=== PATIENT | male | born 1960 | race Caucasian/White ===

== ENCOUNTER 2017-06-23 11:22 | Day surgery (SDC) | payer OTHER ==
[2017-06-19 12:48] VITALS: BMI 28.2
[2017-06-23 11:45] VITALS: RESP 18; TEMP 98.4
[2017-06-23] MEDS: LACTATED RINGERS 1,000 ML IV SCH ×2 (11:52→11:57)
[2017-06-23] MEDS ORDERED: ONDANSETRON 4 MG/2 ML VIAL ONE (12:01)
[2017-06-23] MEDS ORDERED: PROPOFOL 10 MG/ML 20 ML VIAL IV ONE (12:01)
--- NOTE | 2017-06-23 12:21 | P.PCN ---
Date of Procedure: 06/23/17 Preoperative Diagnosis: Postoperative Diagnosis: Procedure(s) Performed: Procedure: Total colonoscopy. Preoperative diagnosis: Screening for neoplasia, patient has history of polyps. Postoperative diagnosis: Sigmoid diverticulosis with no evidence of acute diverticulitis, strictures, polyps or cancer. Preparation: HalfLytely prep. Sedation: Was provided by anesthesia. Brief clinical history: The patient is a 56-year-old male who is scheduled for this evaluation for screening for neoplasia because of history of polyps. He has no abdominal complaints, bleeding or anemia. His last colonoscopy was 2009. Procedure: With the patient on his left lateral decubitus position and after informed consent and adequate sedation, the perianal area was inspected and it did not show any fissures or fistulas. There were no masses felt on digital rectal examination. The Olympus CFQ 160L video colonoscope was then inserted in the rectum in the usual fashion and advanced to the cecum. There were multiple diverticular orifices seen scattered in the sigmoid with no evidence of acute diverticulitis or strictures. No polyps or tumors were seen. The mucosa appeared healthy. I retroflexed the endoscope in the rectum before the endoscope was withdrawn. The patient tolerated the procedure well. Plan: The patient was reassured. Discussed dietary measures. He will follow up with you as planned and I recommended repeat exam in 5 years. Implants: Indications for Procedure: Operative Findings: Description of Procedure:
[2017-06-23 12:35] VITALS: BP 103/67; PULSE 70
== END 2017-06-23 12:58 | disposition home or self-care (01) ==
LOC: ORWHC2ENDO 11:22
DX: Z12.11 Encounter for screening for malignant neoplasm of colon (principal); K57.30 Diverticulosis of large intestine without perforation or abscess without bleeding; Z86.010 Personal history of colon polyps; E78.5 Hyperlipidemia, unspecified; Z79.899 Other long term (current) drug therapy
CPT/HCPCS: J2405; J2704; G0105

== ENCOUNTER → 2017-11-12 | Outpatient (CLI) | payer OTHER ==
--- NOTE | 2017-11-12 08:11 | US ---
EXAMINATION TYPE: US duplex aorta DATE OF EXAM: 11/12/2017 COMPARISON: CT abdomen and pelvis December 30, 2013 CLINICAL HISTORY: Z13.6 Screening for Abdominal Aortic Aneurysm. EXAM MEASUREMENTS: Abdominal Aorta: Proximal: 2.7cm by 2.3 cm transversely Mid: 2.1cm by 2.4 cm transversely Distal: 1.9cm by 1.7 cm transversely Bifurcation: Right: 1.1 x 0.9 cm Left:1.2cm by 1.1 cm Mild atherosclerotic changes IMPRESSION: No ultrasound evidence for abdominal aortic aneurysm.
== END | disposition home or self-care (01) ==
LOC: RADUSWWP 07:30
PROVIDERS: ATTEND Internal Medicine
DX: Z13.6 Encounter for screening for cardiovascular disorders (principal)
CPT/HCPCS: 93979

== ENCOUNTER → 2018-08-26 | Outpatient (CLI) | payer OTHER ==
--- NOTE | 2018-08-27 17:57 | ECHOS ---
STRESS ECHOCARDIOGRAM DATE OF SERVICE: 08/26/2018 INDICATIONS: Chest pain MEDICATIONS: See list. BASELINE HEART RATE: 77 BASELINE BLOOD PRESSURE: 128/67 MAXIMUM HEART RATE: 153 MAXIMUM BLOOD PRESSURE: 202/73 85% MPHR: 137 100% MPHR: 161 METS: 11.1 MAXIMUM STAGE REACHED: 3 TOTAL EXERCISE TIME: 9:30 minutes CLINICAL INFORMATION: Chest pain. STAGE: 3. CLINICAL INFORMATION: The patient referred by Dr. Begum for a stress echo. RESULTS: Baseline heart rate 77. Baseline blood pressure 128/67 mmHg. Baseline 12-lead ECG shows sinus rhythm with normal cardiac intervals. Nonspecific ST-T abnormalities. Patient exercised on Maycol protocol for 9 minutes 30 seconds achieving a peak heart rate of 153 beats per minute. Mildly hypertensive response to exercise was noted. Peak blood pressure 202/73 mmHg. There was no ECG evidence for ischemia. No arrhythmias were noted. Baseline 2D echo images showed normal LV size and systolic function. No segmental wall motion abnormalities. At peak exercise, there was of overall LV contractility without developing any wall motion abnormalities. As recovery regional global LV systolic function remained normal. IMPRESSION: 1. No ECG or echocardiographic evidence for ischemia. 2. Good exercise capacity. 3. Mildly hypertensive response to . MMODL / IJN: [id number] /
== END | disposition home or self-care (01) ==
LOC: RADNMMAIN 09:08
PROVIDERS: ATTEND Internal Medicine
DX: R07.9 Chest pain, unspecified (principal)
CPT/HCPCS: 93351

== ENCOUNTER → 2020-08-30 | Outpatient (CLI) | payer OTHER | END | disposition home or self-care (01) | LOC: LABWHC1 11:56 | PROVIDERS: ATTEND Internal Medicine | DX: R51.9 Headache, unspecified (principal); R68.0 Hypothermia, not associated with low environmental temperature; Z20.828 Contact with and (suspected) exposure to other viral communicable diseases | CPT/HCPCS: U0003; C9803 ==

== ENCOUNTER → 2022-06-26 | Outpatient (CLI) | payer OTHER ==
[2022-06-26 11:09] LABS: Partial Thromboplastin Time 24.3 sec (22.0-30.0); Prothrombin Time 11.3 sec (9.0-12.0)
[2022-06-26 15:45] LABS: African American GFR (CKD) 70.6 (60.0-200.0); Albumin 4.2 g/dL (3.8-4.9); Albumin/Globulin Ratio 1.36 (1.60-3.17); Anion Gap 11.8 mmol/L (10.00-18.00); BUN/Creat Ratio 13.6 Ratio (12.00-20.00); C Reactive Protein 2.6 mg/dL (0.00-0.80); Calcium 9.1 mg/dL (8.7-10.3); Carbon Dioxide 25.1 mmol/L (20.0-27.5); Globulin 3.1 g/dL (1.6-3.3); Non-African American GFR(CKD) 60.9 (60.0-200.0); Potassium 3.8 mmol/L (3.5-5.5); Total Bilirubin 0.6 mg/dL (0.30-1.20); Total Protein 7.4 g/dL (6.2-8.2)
== END | disposition home or self-care (01) ==
LOC: LABWHC1 08:45
PROVIDERS: ATTEND Internal Medicine
DX: Z12.5 Encounter for screening for malignant neoplasm of prostate (principal); T14.8XXA Other injury of unspecified body region, initial encounter; R53.83 Other fatigue; R63.4 Abnormal weight loss; X58.XXXA Exposure to other specified factors, initial encounter
CPT/HCPCS: 36415; 80053; 84153; 84439; 84443; 85027; 85610; 85652; 85730; 86140

== ENCOUNTER 2022-07-01 16:25 | Inpatient (IN) | payer OTHER ==
[2022-07-01] MEDS ORDERED: SODIUM CHLORIDE 0.9% 1,000 ML IV ONE (17:09)
[2022-07-01 17:11] LABS: Albumin 4.2 g/dL (3.5-5.0); Calcium 8.8 mg/dL (8.4-10.2); Magnesium 1.9 mg/dL (1.6-2.3); Phosphorus 4.7 mg/dL (2.5-4.5); Potassium 3.5 mmol/L (3.5-5.1); Total Bilirubin 0.6 mg/dL (0.2-1.3); Total Protein 7.7 g/dL (6.3-8.2); Uric Acid 10.6 mg/dL (3.5-8.5)
--- NOTE | 2022-07-01 17:12 | XR ---
EXAMINATION TYPE: XR chest 2V DATE OF EXAM: 07/01/2022 5:04 PM COMPARISON: Chest radiographs from 02/10/2012 TECHNIQUE: XR chest 2V Frontal and lateral views of the chest. CLINICAL INDICATION:Male, 61 years old with history of sammy; FINDINGS: Lungs/Pleura: There is no evidence of pleural effusion, focal consolidation, or pneumothorax. Pulmonary vascularity: Unremarkable. Heart/mediastinum: Cardiomediastinal silhouette is unremarkable. Musculoskeletal: No acute osseous pathology. IMPRESSION: No acute cardiopulmonary disease/process.
[2022-07-01 17:21] LABS: INR 1.1 (<1.2); Partial Thromboplastin Time 24.8 sec (22.0-30.0); Prothrombin Time 11.4 sec (9.0-12.0)
[2022-07-01] MEDS ORDERED: NALOXONE 0.4 MG/ML 1 ML VIAL IV PRN (17:23)
[2022-07-01 17:29] LABS: Anisocytosis Slight; HCT 27.8 % (39.0-53.0); HGB 10.1 gm/dL (13.0-17.5); Hypochromasia Moderate; MCH 35.6 pg (25.0-35.0); MCHC 36.3 g/dL (31.0-37.0); MCV 98.1 fL (80.0-100.0); Macrocytosis Slight; Mean Platelet Volume 10.1; Poikilocytosis Slight; RBC 2.83 m/uL (4.30-5.90); RDW 18.5 % (11.5-15.5)
[2022-07-01] MEDS ORDERED: HYDROXYUREA 500 MG CAP PO STA (17:32)
--- NOTE | 2022-07-01 17:38 | ED ---
General Adult HPI - General Chief complaint: Recheck/Abnormal Lab/Rx Stated complaint: abnormal labs, per pcp report to er Time Seen by Provider: 07/01/22 16:35 Source: patient, RN notes reviewed, old records reviewed Mode of arrival: ambulatory - History of Present Illness Initial comments: 61-year-old male presenting for abnormal outpatient labs. Patient had a white blood cell count of 174,000 which was 50% blast cells. He was sent in for evaluation by his primary care physician. He does report increased fatigue, dyspnea, easy bruising and bloody noses over the past several months. He is also had unexplained weight loss and diffuse myalgias. He is otherwise quite h ealthy. - Related Data Home Medications Medication Instructions Recorded Confirmed Acetaminophen [Tylenol] 325 mg PO Q4H PRN 06/19/17 06/23/17 Fish Oil/Dha/Epa [Fish Oil 1,200 1 each PO DAILY 06/19/17 06/23/17 mg Fish Oil] Lovastatin [Mevacor] 20 mg PO DAILY 06/19/17 06/23/17 Allergies Allergy/AdvReac Type Severity Reaction Status Date / Time codeine Allergy Nausea Verified 07/01/22 16:39 Review of Systems ROS Statement: Those systems with pertinent positive or pertinent negative responses have been documented in the HPI. ROS Other: All systems not noted in ROS Statement are negative. Past Medical History Past Medical History: Hyperlipidemia History of Any Multi-Drug Resistant Organisms: None Reported Past Surgical History: Back Surgery, Orthopedic Surgery Additional Past Surgical History / Comment(s): Neck surgery, Bilateral Rotator cuff repairs, Plantar fascitis repair, wisdom teeth, colonoscopy Past Anesthesia/Blood Transfusion Reactions: Postoperative Nausea & Vomiting (PONV) Past Psychological History: No Psychological Hx Reported Smoking Status: Never smoker Past Alcohol Use History: Occasional Past Drug Use History: None Reported - Past Family History Father Family Medical History: Cancer Additional Family Medical History / Comment(s): skin CA General Exam General appearance: alert, in no apparent distress Head exam: Present: atraumatic, normocephalic Eye exam: Present: normal appearance, PERRL ENT exam: Present: other (Mucosal and tongue ecchymosis) Neck exam: Present: normal inspection Respiratory exam: Present: normal lung sounds bilaterally. Absent: respiratory distress, wheezes Cardiovascular Exam: Present: regular rate, normal rhythm GI/Abdominal exam: Present: soft. Absent: distended, tenderness, guarding Extremities exam: Present: normal capillary refill Neurological exam: Present: alert. Absent: motor sensory deficit Psychiatric exam: Present: normal affect, normal mood Skin exam: Present: warm, dry, petechiae, other (Multiple areas of ecchymosis and petechial rash) Course Vital Signs 07/01/22 16:34 Temperature 99.2 F Pulse Rate 107 H Respiratory 18 Rate Blood Pressure 142/82 O2 Sat by Pulse 96 Oximetry EKG Findings - EKG Comments: EKG Findings:: Sinus rhythm, low voltage rate of 89, IN interval 164, QRS duration 83, QTC [address] segment elevation. Medical Decision Making - Medical Decision Making 61-year-old male presenting with abnormal outpatient lab suggesting acute leukemia and blast crisis. The patient is well-appearing with stable vitals. All laboratory tests are repeated I did discuss case with Dr. Bolaños, covering for hematology oncology. She does recommend laboratory studies be repeated every 8 hours including a BMP, uric acid, alk phos and LDH, he also recommends allopurinol 300 mg daily, hydroxyurea 2 g, first dose given in the emergency department. And normal saline. I discussed case with Dr. Vale, who will admit with hematology on consult. - Lab Data Result diagrams: 07/01/22 16:51 Lab Results 07/01/22 07/01/22 Range/Units 16:51 16:51 PT 11.4 (9.0-12.0) sec INR 1.1 (<1.2) APTT 24.8 (22.0-30.0) sec Fibrinogen 418 (200-500) mg/dL Sodium 137 (137-145) mmol/L Potassium 3.5 (3.5-5.1) mmol/L Chloride 101 (98-107) mmol/L Carbon Dioxide 23 (22-30) mmol/L Anion Gap 13 mmol/L BUN 16 (9-20) mg/dL Creatinine 1.17 (0.66-1.25) mg/dL Est GFR (CKD-EPI)AfAm 76 (>60 ml/min/1.73 sqM) Est GFR (CKD-EPI)NonAf 66 (>60 ml/min/1.73 sqM) Glucose 145 H (74-99) mg/dL Uric Acid 10.6 H (3.5-8.5) mg/dL Calcium 8.8 (8.4-10.2) mg/dL Phosphorus 4.7 H (2.5-4.5) mg/dL Magnesium 1.9 (1.6-2.3) mg/dL Total Bilirubin 0.6 (0.2-1.3) mg/dL AST 90 H (17-59) U/L ALT 39 (4-49) U/L Alkaline Phosphatase 193 H (38-126) U/L Total Protein 7.7 (6.3-8.2) g/dL Albumin 4.2 (3.5-5.0) g/dL Critical Care Time Critical Care Time: Yes Total Critical Care Time: 35 Disposition Clinical Impression: Acute leukemia Disposition: ADMITTED IP TO THIS [facility] Condition: Serious Is patient prescribed a controlled substance at d/c from ED?: No Referrals: Stanley Murray MD [Primary Care Provider] - 1-2 days Time of Disposition: 17:37
[2022-07-01 17:45] LABS: Platelet Count 21 k/uL (150-450)
[2022-07-01] MEDS: allopurinoL 300 MG TAB PO SCH (18:01)
[2022-07-01] MEDS: SODIUM CHLORIDE 0.9% 1,000 ML IV SCH (18:01)
[2022-07-01 18:05] LABS: Appearance,Urine Clear (Clear); Bilirubin,Urine Negative (Negative); Blood,Urine Small (Negative); Calcium Oxalate Crystals,Urine Rare /hpf; Color,Urine Yellow; Glucose,Urine (UA) Negative (Negative); Ketones,Urine Negative (Negative); Leukocyte Esterase,Urine Small (Negative); Mucus,Urine Many /hpf; Nitrite,Urine Negative (Negative); PH, Urine 5.5 (5.0-8.0); Protein,Urine 1+ (Negative); RBC,Urine 42 /hpf (0-5); Specific Gravity,Urine 1.033 (1.001-1.035); WBC,Urine 6 /hpf (0-5)
[2022-07-01] MEDS ORDERED: LORATADINE 10 MG TAB PO PRN (18:15)
[2022-07-01] MEDS ORDERED: RASBURICASE 6 MG in SODIUM CHLORIDE 0.9% 46 ML IV ONE (18:15)
--- NOTE | 2022-07-01 18:15 | P.HPIM ---
History of Present Illness H&P Date: 07/01/22 Chief Complaint: fatigue 61-year-old male presenting for abnormal outpatient labs. Patient had a white blood cell count of 174,000 which was 50% blast cells. He was sent in for evaluation by his primary care physician. He does report increased fatigue, dyspnea, easy bruising and bloody noses over the past several months. He is also had unexplained weight loss, loss of appetite. He has exertional shortness of breath which is unusual for him as he is very active normally. He denied any chest pain. He did mention some left upper quadrant abdominal pain as well as nausea but no vomiting. No diarrhea or constipation. He only has history of hyperlipidemia. No other past medical history. Evaluation in the emergency department revealed WBC count 178 hemoglobin 10, hematocrit 27, AST 92, ALT 39, alk phos 193, d-dimer 1.74, glucose 145, uric acid 10.6. Case was discussed with hematology and patient was admitted to medicine for further evaluation and management. Review of Systems Complete review of system performed, pertinent positives per HPI, otherwise negative Past Medical History Past Medical History: Hyperlipidemia History of Any Multi-Drug Resistant Organisms: None Reported Past Surgical History: Back Surgery, Orthopedic Surgery Additional Past Surgical History / Comment(s): Neck surgery, Bilateral Rotator cuff repairs, Plantar fascitis repair, wisdom teeth, colonoscopy Past Anesthesia/Blood Transfusion Reactions: Postoperative Nausea & Vomiting (PONV) Past Psychological History: No Psychological Hx Reported Smoking Status: Never smoker Past Alcohol Use History: Occasional Past Drug Use History: None Reported - Past Family History Father Family Medical History: Cancer Additional Family Medical History / Comment(s): skin CA Medications and Allergies Home Medications Medication Instructions Recorded Confirmed Type Acetaminophen [Tylenol] 650 mg PO Q4H PRN 06/19/17 07/01/22 History Fish Oil/Dha/Epa [Fish Oil 1,200 1 cap PO DAILY 06/19/17 07/01/22 History mg Fish Oil] Lovastatin [Mevacor] 20 mg PO DAILY 06/19/17 07/01/22 History Loratadine [Claritin] 10 mg PO DAILY PRN 07/01/22 07/01/22 History Omeprazole [PriLOSEC] 20 mg PO DAILY 07/01/22 07/01/22 History tadalafiL 5 mg PO DAILY 07/01/22 07/01/22 History Allergies Allergy/AdvReac Type Severity Reaction Status Date / Time codeine Allergy Nausea Verified 07/01/22 17:54 Physical Exam Vitals: Vital Signs Temp Pulse Resp BP Pulse Ox 07/01/22 17:59 93 22 165/82 96 07/01/22 16:34 99.2 F 107 H 18 142/82 96 Intake and Output 07/01/22 07/01/22 07/01/22 06:59 14:59 22:59 Other: Weight 96.162 kg Constitutional: No acute distress, conversant, pleasant Eyes:Anicteric sclerae, moist conjunctiva, no lid-lag, PERRLA, ENMT: ecchymosis inside the oral cavity, no erythema, exudates Neck: Supple, FROM, no masses, or JVD, No carotid bruits, No thyromegaly Lungs: Clear to auscultation, Clear to percussion, Normal respiratory effort, no accessory muscle use Cardiovascular: Heart regular in rate and rhythm, No murmurs, gallops, or rubs, No peripheral edema Abdominal: Soft, Nontender, no guarding, rebound or rigidity, Normoactive bowel sounds, No hepatomegaly, + splenomegaly, No palpable mass Skin: +bruises all over the skin. Normal temperature, tone, texture, turgor, no induration, No subcutaneous nodules, No rash, lesions, No ulcers Extremities: No digital cyanosis, No clubbing, Pedal pulses intact and symmetrical, Radial pulses intact and symmetrical, No calf tenderness Psychiatric: Alert and oriented to person, place and time, appropriate affect, intact judgement Neuro: Muscles Strength 5/5 in all 4 extremities, Sensation to light touch grossly present throughout, Cranial nerves II-XII grossly intact, no focal sensory deficits Results CBC & Chem 7: 07/01/22 16:51 07/01/22 16:51 Labs: Abnormal Lab Results - Last 24 Hours (Table) 07/01/22 07/01/22 07/01/22 Range/Units 16:51 16:51 17:30 WBC 178.2 H* (3.8-10.6) k/uL RBC 2.83 L (4.30-5.90) m/uL Hgb 10.1 L (13.0-17.5) gm/dL Hct 27.8 L (39.0-53.0) % MCH 35.6 H (25.0-35.0) pg RDW 18.5 H (11.5-15.5) % D-Dimer 1.74 H (<0.60) mg/L FEU Glucose 145 H (74-99) mg/dL Uric Acid 10.6 H (3.5-8.5) mg/dL Phosphorus 4.7 H (2.5-4.5) mg/dL AST 90 H (17-59) U/L Alkaline Phosphatase 193 H (38-126) U/L Urine Protein (Negative) Urine Blood (Negative) Ur Leukocyte Esterase (Negative) Urine RBC (0-5) /hpf Urine WBC (0-5) /hpf Calcium Oxalate Crystal (None) /hpf Urine Mucus (None) /hpf 07/01/22 Range/Units 17:50 WBC (3.8-10.6) k/uL RBC (4.30-5.90) m/uL Hgb (13.0-17.5) gm/dL Hct (39.0-53.0) % MCH (25.0-35.0) pg RDW (11.5-15.5) % D-Dimer (<0.60) mg/L FEU Glucose (74-99) mg/dL Uric Acid (3.5-8.5) mg/dL Phosphorus (2.5-4.5) mg/dL AST (17-59) U/L Alkaline Phosphatase (38-126) U/L Urine Protein 1+ H (Negative) Urine Blood Small H (Negative) Ur Leukocyte Esterase Small H (Negative) Urine RBC 42 H (0-5) /hpf Urine WBC 6 H (0-5) /hpf Calcium Oxalate Crystal Rare H (None) /hpf Urine Mucus Many H (None) /hpf Assessment and Plan Plan: 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 Further management per hematology Normocytic anemia Workup per hematology Hyperglycemia Blood glucose was 145, check A1c Hyperlipidemia Continue statin Admit to inpatient, expected length of stay more than 2 mid nights
[2022-07-01 18:27] LABS: Band Neutrophils % 3 %; Metamyelocytes % 4 %; Myelocytes % 3 %; Neutrophils % (M) 26 %
[2022-07-01 18:28] LABS: Blast Cells # (M) 88.24 k/uL (0); Eosinophils # (M) 13.58 k/uL (0-0.7); Lymphocytes # (M) 5.09 k/uL (1.0-4.8); Metamyelocytes # (M) 6.79 k/uL (0); Myelocytes # (M) 5.09 k/uL (0); Nucleated Red Blood Cells 5 /100 WBC (0-0); Total Cells Counted 100; WBC 169.7 k/uL (3.8-10.6)
[2022-07-01 18:32] LABS: Poikilocytosis (M) Present; Polychromasia Present
[2022-07-01] MEDS: ACETAMINOPHEN TAB 325 MG TAB PO PRN (21:48)
[2022-07-02] MEDS: SODIUM CHLORIDE 0.9% 1,000 ML IV SCH ×3 (00:53→16:36)
[2022-07-02 02:39] LABS: Anisocytosis Slight; HCT 26.8 % (39.0-53.0); Hypochromasia Marked; MCH 31.9 pg (25.0-35.0); MCHC 31.8 g/dL (31.0-37.0); MCV 100.3 fL (80.0-100.0); Macrocytosis Moderate; Mean Platelet Volume 11.9; Poikilocytosis Slight; RBC 2.67 m/uL (4.30-5.90); RDW 19.1 % (11.5-15.5)
[2022-07-02 02:42] LABS: Calcium 8.6 mg/dL (8.4-10.2); Phosphorus 4.9 mg/dL (2.5-4.5); Potassium 3.5 mmol/L (3.5-5.1); Uric Acid 5.1 mg/dL (3.5-8.5)
[2022-07-02 03:07] LABS: WBC 154.7 k/uL (3.8-10.6)
[2022-07-02 03:10] LABS: HGB 8.5 gm/dL (13.0-17.5); Platelet Count 16 k/uL (150-450)
[2022-07-02] MEDS: allopurinoL 300 MG TAB PO SCH (08:07)
[2022-07-02] MEDS: PANTOPRAZOLE 40 MG TABLET PO SCH (08:08)
[2022-07-02 08:10] LABS: Band Neutrophils % 3 %; Blast Cells # (M) 69.62 k/uL (0); Eosinophils # (M) 9.28 k/uL (0-0.7); Lymphocytes # (M) 9.28 k/uL (1.0-4.8); Metamyelocytes # (M) 3.09 k/uL (0); Metamyelocytes % 2 %; Monocytes # (M) 21.66 k/uL (0-1.0); Myelocytes # (M) 3.09 k/uL (0); Myelocytes % 2 %; Neutrophils % (M) 24 %; Nucleated Red Blood Cells 0 /100 WBC (0-0); Promyelocytes # (M) 1.55 k/uL (0); Promyelocytes % 1 %; Total Cells Counted 200
[2022-07-02] MEDS: ACETAMINOPHEN TAB 325 MG TAB PO PRN ×3 (08:11→21:14)
[2022-07-02 08:15] LABS: Polychromasia Present
[2022-07-02] MEDS ORDERED: ATORVASTATIN 10 MG TAB PO SCH (09:00)
[2022-07-02] MEDS ORDERED: HYDROXYUREA 500 MG CAP PO STA (09:46)
[2022-07-02 11:00] LABS: Anisocytosis Slight; HCT 27.5 % (39.0-53.0); HGB 9.1 gm/dL (13.0-17.5); Hypochromasia Marked; MCH 33.1 pg (25.0-35.0); MCHC 32.9 g/dL (31.0-37.0); MCV 100.5 fL (80.0-100.0); Macrocytosis Moderate; Mean Platelet Volume 10.5; Poikilocytosis Slight; RBC 2.74 m/uL (4.30-5.90); RDW 19.1 % (11.5-15.5)
[2022-07-02 11:13] LABS: Platelet Count 20 k/uL (150-450)
[2022-07-02 11:28] LABS: Calcium 8.5 mg/dL (8.4-10.2); Phosphorus 4.4 mg/dL (2.5-4.5); Potassium 3.3 mmol/L (3.5-5.1); Uric Acid 2.4 mg/dL (3.5-8.5)
[2022-07-02] MEDS ORDERED: Potassium Replacement Protocol 1 EACH MISC MISCELLANE PRN (11:48)
[2022-07-02] MEDS: POTASSIUM CHLORIDE ER 20 MEQ TAB.ER PO SCH ×2 (11:57→12:58)
[2022-07-02 14:12] LABS: Band Neutrophils % 1 %; Metamyelocytes # (M) 3.16 k/uL (0); Metamyelocytes % 2 %; Monocytes # (M) 11.06 k/uL (0-1.0); Myelocytes # (M) 4.74 k/uL (0); Myelocytes % 3 %; Nucleated Red Blood Cells 0 /100 WBC (0-0)
[2022-07-02 14:15] LABS: Blast Cells # (M) 69.52 k/uL (0); Eosinophils # (M) 9.48 k/uL (0-0.7); Neutrophils % (M) 32 %; Polychromasia Present; Total Cells Counted 202
[2022-07-02 14:18] LABS: Reticulocyte % 5.8 % (0.5-2.0)
[2022-07-02] MEDS ORDERED: LIDOCAINE 1% INJ 10MG/ML (5 ML VIAL-PF) SQ ONE (14:34)
[2022-07-02] MEDS ORDERED: PROPOFOL 10 MG/ML 20 ML VIAL IV ONE (14:45)
[2022-07-02] MEDS ORDERED: MIDAZOLAM 2 MG/2 ML VIAL ONE (14:45)
[2022-07-02] MEDS ORDERED: ONDANSETRON 4 MG/2 ML VIAL ONE (14:45)
[2022-07-02] MEDS ORDERED: DEXAMETHASONE SOD PHOSPHATE 10 MG/ML 1 ML VIAL ONE (14:45)
[2022-07-02] MEDS ORDERED: PHENYLEPHRINE-0.9% NACL SYG 1,000 MCG/10 ML SYRINGE ONE (14:45)
[2022-07-02] MEDS ORDERED: fentaNYL (PF) 50 MCG/ML 2 ML AMP ONE (14:45)
[2022-07-02] MEDS ORDERED: IV FLUID CONTINUATION 1,000 ML IV ONE ×2 (14:49)
--- NOTE | 2022-07-02 15:09 | P.PN ---
Subjective Progress Note Date: 07/02/22 Principal diagnosis: weakness Feeling about the same, no changes. No overnight events. No pain, no sob. No fevers. Objective - Vital Signs Vital signs: Vital Signs Temp 97.8 F 07/02/22 07:43 Pulse 80 07/02/22 13:56 Resp 20 07/02/22 11:33 BP 135/75 07/02/22 11:33 Pulse Ox 96 07/02/22 11:33 FiO2 Intake & Output 07/01/22 07/02/22 07/02/22 18:59 06:59 18:59 Weight 96.162 kg 96.162 kg Other: Voiding Method Toilet # Voids 2 - Exam Constitutional: No acute distress, conversant, pleasant Eyes:Anicteric sclerae, moist conjunctiva, no lid-lag, PERRLA, ENMT: ecchymosis inside the oral cavity, no erythema, exudates Neck: Supple, FROM, no masses, or JVD, No carotid bruits, No thyromegaly Lungs: Clear to auscultation, Clear to percussion, Normal respiratory effort, no accessory muscle use Cardiovascular: Heart regular in rate and rhythm, No murmurs, gallops, or rubs, No peripheral edema Abdominal: Soft, Nontender, no guarding, rebound or rigidity, Normoactive bowel sounds, No hepatomegaly, + splenomegaly, No palpable mass Skin: +bruises all over the skin. Normal temperature, tone, texture, turgor, no induration, No subcutaneous nodules, No rash, lesions, No ulcers Extremities: No digital cyanosis, No clubbing, Pedal pulses intact and symmetrical, Radial pulses intact and symmetrical, No calf tenderness Psychiatric: Alert and oriented to person, place and time, appropriate affect, intact judgement Neuro: Muscles Strength 5/5 in all 4 extremities, Sensation to light touch grossly present throughout, Cranial nerves II-XII grossly intact, no focal sensory deficits - Labs CBC & Chem 7: 07/02/22 10:15 07/02/22 10:15 Labs: Abnormal Lab Results - Last 24 Hours (Table) 07/01/22 07/01/22 07/01/22 Range/Units 16:51 16:51 17:30 WBC 169.7 H* (3.8-10.6) k/uL RBC 2.83 L (4.30-5.90) m/uL Hgb 10.1 L (13.0-17.5) gm/dL Hct 27.8 L (39.0-53.0) % MCV (80.0-100.0) fL MCH 35.6 H (25.0-35.0) pg RDW 18.5 H (11.5-15.5) % Plt Count 21 L (150-450) k/uL Blast Cells % 52 H* % Neutrophils # (Manual) 49.20 H (1.3-7.7) k/uL Lymphocytes # (Manual) 5.09 H (1.0-4.8) k/uL Monocytes # (Manual) 1.70 H (0-1.0) k/uL Eosinophils # (Manual) 13.58 H (0-0.7) k/uL Metamyelocytes # (Man) 6.79 H (0) k/uL Myelocytes # (Manual) 5.09 H (0) k/uL Promyelocytes # (Man) (0) k/uL Blast Cells # (Man) 88.24 H (0) k/uL Nucleated RBCs 5 H (0-0) /100 WBC Retic Count (0.5-2.0) % D-Dimer 1.74 H (<0.60) mg/L FEU Potassium (3.5-5.1) mmol/L Glucose 145 H (74-99) mg/dL Uric Acid 10.6 H (3.5-8.5) mg/dL Phosphorus 4.7 H (2.5-4.5) mg/dL AST 90 H (17-59) U/L Alkaline Phosphatase 193 H (38-126) U/L Lactate Dehydrogenase (313-618) U/L Urine Protein (Negative) Urine Blood (Negative) Ur Leukocyte Esterase (Negative) Urine RBC (0-5) /hpf Urine WBC (0-5) /hpf Calcium Oxalate Crystal (None) /hpf Urine Mucus (None) /hpf 07/01/22 07/02/22 07/02/22 Range/Units 17:50 02:12 02:12 WBC 154.7 H* (3.8-10.6) k/uL RBC 2.67 L (4.30-5.90) m/uL Hgb 8.5 L D (13.0-17.5) gm/dL Hct 26.8 L (39.0-53.0) % MCV 100.3 H (80.0-100.0) fL MCH (25.0-35.0) pg RDW 19.1 H (11.5-15.5) % Plt Count 16 L* (150-450) k/uL Blast Cells % 45 H* % Neutrophils # (Manual) 41.70 H (1.3-7.7) k/uL Lymphocytes # (Manual) 9.28 H (1.0-4.8) k/uL Monocytes # (Manual) 21.66 H (0-1.0) k/uL Eosinophils # (Manual) 9.28 H (0-0.7) k/uL Metamyelocytes # (Man) 3.09 H (0) k/uL Myelocytes # (Manual) 3.09 H (0) k/uL Promyelocytes # (Man) 1.55 H (0) k/uL Blast Cells # (Man) 69.62 H (0) k/uL Nucleated RBCs (0-0) /100 WBC Retic Count (0.5-2.0) % D-Dimer (<0.60) mg/L FEU Potassium (3.5-5.1) mmol/L Glucose (74-99) mg/dL Uric Acid (3.5-8.5) mg/dL Phosphorus 4.9 H (2.5-4.5) mg/dL AST (17-59) U/L Alkaline Phosphatase (38-126) U/L Lactate Dehydrogenase 4417 H (313-618) U/L Urine Protein 1+ H (Negative) Urine Blood Small H (Negative) Ur Leukocyte Esterase Small H (Negative) Urine RBC 42 H (0-5) /hpf Urine WBC 6 H (0-5) /hpf Calcium Oxalate Crystal Rare H (None) /hpf Urine Mucus Many H (None) /hpf 07/02/22 07/02/22 Range/Units 10:15 10:15 WBC 158.0 H* (3.8-10.6) k/uL RBC 2.74 L (4.30-5.90) m/uL Hgb 9.1 L (13.0-17.5) gm/dL Hct 27.5 L (39.0-53.0) % MCV 100.5 H (80.0-100.0) fL MCH (25.0-35.0) pg RDW 19.1 H (11.5-15.5) % Plt Count 20 L (150-450) k/uL Blast Cells % 44 H* % Neutrophils # (Manual) 52.10 H (1.3-7.7) k/uL Lymphocytes # (Manual) 7.90 H (1.0-4.8) k/uL Monocytes # (Manual) 11.06 H (0-1.0) k/uL Eosinophils # (Manual) 9.48 H (0-0.7) k/uL Metamyelocytes # (Man) 3.16 H (0) k/uL Myelocytes # (Manual) 4.74 H (0) k/uL Promyelocytes # (Man) (0) k/uL Blast Cells # (Man) 69.52 H (0) k/uL Nucleated RBCs (0-0) /100 WBC Retic Count 5.8 H (0.5-2.0) % D-Dimer (<0.60) mg/L FEU Potassium 3.3 L (3.5-5.1) mmol/L Glucose (74-99) mg/dL Uric Acid 2.4 L (3.5-8.5) mg/dL Phosphorus (2.5-4.5) mg/dL AST (17-59) U/L Alkaline Phosphatase (38-126) U/L Lactate Dehydrogenase 4505 H (313-618) U/L Urine Protein (Negative) Urine Blood (Negative) Ur Leukocyte Esterase (Negative) Urine RBC (0-5) /hpf Urine WBC (0-5) /hpf Calcium Oxalate Crystal (None) /hpf Urine Mucus (None) /hpf Assessment and Plan 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 Will have a port and BM biopsy Further management per hematology Normocytic anemia Workup per hematology Hyperglycemia on admission A1c normal, no DM Hypokalemia Replace and follow Hyperlipidemia Continue statin
--- NOTE | 2022-07-02 15:14 | P.PCN ---
Date of Procedure: 07/02/22 Preoperative Diagnosis: Leukocytosis, abnormal peripheral smear, suspected acute leukemia Postoperative Diagnosis: Same Procedure(s) Performed: Bone marrow aspiration biopsy Anesthesia: MAC Surgeon: Ralf Beck Barrel Finisher #1: Stated None Estimated Blood Loss (ml): 2 Pathology: other Condition: stable Disposition: floor Indications for Procedure: Newly diagnosed marked leukocytosis, abnormal peripheral smear with majority of blasts. Suspected acute leukemia Operative Findings: Adequate samples Description of Procedure: The procedure was explained in detail to the patient on the floor. Informed consent was obtained on the floor. He was brought to the outpatient endoscopy suite and placed in the left lateral decubitus position. The area over both posterior iliac crest was cleaned and prepped with chlorhexidine a sterile draping. IV sedation wasn't initiated. Local anesthesia was administered with Xylocaine to the right posterior iliac crest. A Jamshidi needle was then inserted and bone marrow aspirate and biopsy obtained. On withdrawal of the needle, hemostasis was easily achieved. Blood loss was minimal and recovery from sedation was satisfactory. He appeared to have tolerated the procedure well without any obvious, immediate complications.
--- NOTE | 2022-07-02 15:28 | IR ---
EXAMINATION TYPE: IR cvc insert >=5 years DATE OF EXAM: 07/02/2022 COMPARISON: NONE CLINICAL HISTORY: Leukemia Needs long-term intravenous access for interval therapy. PROCEDURE: Hand hygiene obtained with soap and water and alcohol-based hand rub. After informed consent, the skin overlying the left basilic vein was localized with ultrasound and no jessie to be compressible and patent. An ultrasound image was obtained and submitted on the patient's c major. The overlying skin was prepped and draped and Lidocaine was used for local anesthesia. A skin fransisco was made with a scalpel. Access was gained to the vein under ultrasound guidance with a 21 gau ge needle and a 0.018 inch wire was advanced. Access site was dilated with Peel-Away sheath and cath eter tailored to the appropriate length and advanced such that the distal tip is at the cavoatrial ju nction. Spot image was obtained verifying placement. Catheter was fixed to the skin and a sterile d ressing was placed following hemostasis. Catheter was aspirated and flushed with saline. Patient wa s discharged in stable condition without complication. Maximal barrier technique is utilized. Ultras ound image is documented on the chart. Ultrasound used with sterile technique. Fluoro time and fluoroscopic images submitted to document procedure: 0.1 minutes fluoroscopy, 23 intr aoperative images document the procedure IMPRESSION: STATUS POST ULTRASOUND AND FLUOROSCOPIC GUIDED PICC LINE PLACEMENT, READY FOR USE. THIS PROCEDURE WAS PERFORMED BY THE UNDERSIGNED.
--- NOTE | 2022-07-02 16:11 | P.CONS ---
History of Present Illness - Reason for Consult Consult date: 07/02/22 leukocytosis, peripheral blasts Requesting physician: Rahul Grande - Chief Complaint abn labs - History of Present Illness Mr. Goyal is a pleasant 61-year-old male we've been asked to see in regards to significantly elevated WBC with bicytopenia and peripheral blasts. Patient states that for the last few months he has been experiencing some strange symptoms including unusual shortness of breath with exertion, persistent and progressive fatigue that he was not able to overcome, sores in his mouth, bruising on the extremities with no real trauma, gum bleeding, epistaxis and intermittent nausea. Patient was finally encouraged by his family to seek medical attention. He saw his PCP Dr. Houston who examined patient and harshal labs. Severe leukocytosis, anemia, thrombocytopenia seen. Pt was contacted and told to come directly to the hospital for evaluation. On admission his WBC was 169, hemoglobin 10.1, platelet count 21,000, blasts percentage 52%. ER physician did speak with Dr. Umair Bolaños. Hydrea 2000 mg 1 for cytoreduction was ordered. Tumor lysis labs were ordered, elevated uric acid and phosphorus noted, 1 dose of Elitek given, allopurinol started, IVF 125/hr. Kidney function WNL. Patient was seen in the ER today. Thankfully, patient is denying severe symptoms as long as he is at rest, he is able to tolerate oral intake and fluids, he is ambulating short distances without too much difficulty. His vital signs are stable. Patient states he is overall healthy man, the only medication he takes is cholesterol medicine. Review of Systems 10 point ROS is neg except as stated in HPI Past Medical History Past Medical History: Hyperlipidemia History of Any Multi-Drug Resistant Organisms: None Reported Past Surgical History: Back Surgery, Orthopedic Surgery Additional Past Surgical History / Comment(s): Neck surgery, Bilateral Rotator cuff repairs, Plantar fascitis repair, wisdom teeth, colonoscopy, cervical fusion, meniscus tear repair. Past Anesthesia/Blood Transfusion Reactions: Postoperative Nausea & Vomiting (PONV) Additional Past Anesthesia/Blood Transfusion Reaction / Comm: Usually takes nausea medication prior to going under anesthesia. Past Psychological History: No Psychological Hx Reported Smoking Status: Never smoker Past Alcohol Use History: Occasional Past Drug Use History: None Reported - Past Family History Father Family Medical History: Cancer Additional Family Medical History / Comment(s): Skin CA Mother Additional Family Medical History / Comment(s): Blood disorder, frequent blood transfusions Medications and Allergies Home Medications Medication Instructions Recorded Confirmed Type Acetaminophen [Tylenol] 650 mg PO Q4H PRN 06/19/17 07/01/22 History Fish Oil/Dha/Epa [Fish Oil 1,200 1 cap PO DAILY 06/19/17 07/01/22 History mg Fish Oil] Lovastatin [Mevacor] 20 mg PO DAILY 06/19/17 07/01/22 History Loratadine [Claritin] 10 mg PO DAILY PRN 07/01/22 07/01/22 History Omeprazole [PriLOSEC] 20 mg PO DAILY 07/01/22 07/01/22 History tadalafiL 5 mg PO DAILY 07/01/22 07/01/22 History Allergies Allergy/AdvReac Type Severity Reaction Status Date / Time codeine Allergy Nausea Verified 07/01/22 17:54 Physical Exam Vitals: Vital Signs Temp Pulse Pulse Resp BP BP Pulse Ox 07/02/22 11:33 80 20 135/75 96 07/02/22 07:43 97.8 F 77 20 135/73 95 07/02/22 05:44 98.6 F 80 20 129/72 97 07/01/22 21:47 86 20 134/80 98 07/01/22 17:59 93 22 165/82 96 07/01/22 16:34 99.2 F 107 H 18 142/82 96 Intake and Output 07/01/22 07/02/22 07/02/22 22:59 06:59 14:59 Other: Voiding Method Toilet # Voids 2 Weight 96.162 kg 96.162 kg - Constitutional General appearance: average body habitus, cooperative, no acute distress - EENT Lt buccal, lt lateral tongue, upper lip wet purpura Eyes: anicteric sclerae, EOMI ENT: hearing grossly normal, normal oropharynx - Neck Neck: no lymphadenopathy - Respiratory Respiratory: bilateral: rales (inspiratory) - Cardiovascular Rhythm: regular Heart sounds: normal: S1, S2 Abnormal Heart Sounds: no systolic murmur, no diastolic murmur, no rub, no S3 Gallop, no S4 Gallop, no click, no other leg Peripheral Edema: bilateral: None - Gastrointestinal General gastrointestinal: no absent bowel sounds, no decreased bowel sounds, no distended, hepatomegaly, no hyperactive bowel sounds, normal bowel sounds, no organomegaly, no rigid, no scaphoid, soft, splenomegaly, no tenderness, no umbilical hernia, no ventral hernia - Integumentary LLE bruising, scattered upper extremity bruises - Neurologic Neurologic: CNII-XII intact - Musculoskeletal Musculoskeletal: strength equal bilaterally - Psychiatric Psychiatric: A&O x's 3, appropriate affect, intact judgment & insight Results CBC & Chem 7: 07/02/22 10:15 07/02/22 10:15 Labs: Abnormal Lab Results - Last 24 Hours (Table) 07/01/22 07/01/22 07/01/22 Range/Units 16:51 16:51 17:30 WBC 169.7 H* (3.8-10.6) k/uL RBC 2.83 L (4.30-5.90) m/uL Hgb 10.1 L (13.0-17.5) gm/dL Hct 27.8 L (39.0-53.0) % MCV (80.0-100.0) fL MCH 35.6 H (25.0-35.0) pg RDW 18.5 H (11.5-15.5) % Plt Count 21 L (150-450) k/uL Blast Cells % 52 H* % Neutrophils # (Manual) 49.20 H (1.3-7.7) k/uL Lymphocytes # (Manual) 5.09 H (1.0-4.8) k/uL Monocytes # (Manual) 1.70 H (0-1.0) k/uL Eosinophils # (Manual) 13.58 H (0-0.7) k/uL Metamyelocytes # (Man) 6.79 H (0) k/uL Myelocytes # (Manual) 5.09 H (0) k/uL Promyelocytes # (Man) (0) k/uL Blast Cells # (Man) 88.24 H (0) k/uL Nucleated RBCs 5 H (0-0) /100 WBC D-Dimer 1.74 H (<0.60) mg/L FEU Potassium (3.5-5.1) mmol/L Glucose 145 H (74-99) mg/dL Uric Acid 10.6 H (3.5-8.5) mg/dL Phosphorus 4.7 H (2.5-4.5) mg/dL AST 90 H (17-59) U/L Alkaline Phosphatase 193 H (38-126) U/L Lactate Dehydrogenase (313-618) U/L Urine Protein (Negative) Urine Blood (Negative) Ur Leukocyte Esterase (Negative) Urine RBC (0-5) /hpf Urine WBC (0-5) /hpf Calcium Oxalate Crystal (None) /hpf Urine Mucus (None) /hpf 07/01/22 07/02/22 07/02/22 Range/Units 17:50 02:12 02:12 WBC 154.7 H* (3.8-10.6) k/uL RBC 2.67 L (4.30-5.90) m/uL Hgb 8.5 L D (13.0-17.5) gm/dL Hct 26.8 L (39.0-53.0) % MCV 100.3 H (80.0-100.0) fL MCH (25.0-35.0) pg RDW 19.1 H (11.5-15.5) % Plt Count 16 L* (150-450) k/uL Blast Cells % 45 H* % Neutrophils # (Manual) 41.70 H (1.3-7.7) k/uL Lymphocytes # (Manual) 9.28 H (1.0-4.8) k/uL Monocytes # (Manual) 21.66 H (0-1.0) k/uL Eosinophils # (Manual) 9.28 H (0-0.7) k/uL Metamyelocytes # (Man) 3.09 H (0) k/uL Myelocytes # (Manual) 3.09 H (0) k/uL Promyelocytes # (Man) 1.55 H (0) k/uL Blast Cells # (Man) 69.62 H (0) k/uL Nucleated RBCs (0-0) /100 WBC D-Dimer (<0.60) mg/L FEU Potassium (3.5-5.1) mmol/L Glucose (74-99) mg/dL Uric Acid (3.5-8.5) mg/dL Phosphorus 4.9 H (2.5-4.5) mg/dL AST (17-59) U/L Alkaline Phosphatase (38-126) U/L Lactate Dehydrogenase 4417 H (313-618) U/L Urine Protein 1+ H (Negative) Urine Blood Small H (Negative) Ur Leukocyte Esterase Small H (Negative) Urine RBC 42 H (0-5) /hpf Urine WBC 6 H (0-5) /hpf Calcium Oxalate Crystal Rare H (None) /hpf Urine Mucus Many H (None) /hpf 07/02/22 07/02/22 Range/Units 10:15 10:15 WBC 158.0 H* (3.8-10.6) k/uL RBC 2.74 L (4.30-5.90) m/uL Hgb 9.1 L (13.0-17.5) gm/dL Hct 27.5 L (39.0-53.0) % MCV 100.5 H (80.0-100.0) fL MCH (25.0-35.0) pg RDW 19.1 H (11.5-15.5) % Plt Count 20 L (150-450) k/uL Blast Cells % % Neutrophils # (Manual) (1.3-7.7) k/uL Lymphocytes # (Manual) (1.0-4.8) k/uL Monocytes # (Manual) (0-1.0) k/uL Eosinophils # (Manual) (0-0.7) k/uL Metamyelocytes # (Man) (0) k/uL Myelocytes # (Manual) (0) k/uL Promyelocytes # (Man) (0) k/uL Blast Cells # (Man) (0) k/uL Nucleated RBCs (0-0) /100 WBC D-Dimer (<0.60) mg/L FEU Potassium 3.3 L (3.5-5.1) mmol/L Glucose (74-99) mg/dL Uric Acid 2.4 L (3.5-8.5) mg/dL Phosphorus (2.5-4.5) mg/dL AST (17-59) U/L Alkaline Phosphatase (38-126) U/L Lactate Dehydrogenase 4505 H (313-618) U/L Urine Protein (Negative) Urine Blood (Negative) Ur Leukocyte Esterase (Negative) Urine RBC (0-5) /hpf Urine WBC (0-5) /hpf Calcium Oxalate Crystal (None) /hpf Urine Mucus (None) /hpf Chest x-ray: report reviewed Assessment and Plan (1) Spontaneous tumor lysis syndrome Current Visit: Yes Status: Acute Priority: High Code(s): E88.3 - TUMOR LYSIS SYNDROME SNOMED Code(s): 020216979 (2) Acute leukemia Current Visit: Yes Status: Acute Priority: High Code(s): C95.00 - ACUTE LEUKEMIA OF UNSP CELL TYPE NOT ACHIEVE REMISSION SNOMED Code(s): 27159084 Plan: peripheral smear was reviewed. No kita rods, coags and fibrinogen normal. Immature blast cells noted. Most likely acute leukemia. Disease process, prognosis, treatment options, all reviewed with patient. The patient is interested in finding out the diagnosis and pursuing treatment. Plan is for bone marrow biopsy and aspirate today. Procedure, risks versus benefits, infection risk reviewed with the patient. He is agreeable to proceed. Nothing by mouth, schedule procedure and consent. In anticipation of beginning induction chemotherapy for acute leukemia:ECHO ordered. PICC line insertion scheduled. Have requested that the patient be sent to 5 [address] Oncology unit. Supportive medications ordered. Another dose of Hydrea, 2000 mg ordered. Status post 1 dose of Elitek. Continue allopurinol 300 mg daily. CBC, metabolic panel and tumor lysis labs continue to be monitored daily. attests: I seen and examined patient, performed H&P, developed impression and plan of care. Discussed with dictator. Agree with dictation. Documented as a scribe. Time with Patient: Greater than 30
[2022-07-02] MEDS: SALT AND SODA MOUTHWASH 1,000 ML PO SCH ×2 (16:37→21:10)
[2022-07-02] MEDS: MAG HYDROX/AL HYDROX/SIMETH 30 ML, diphenhydrAMINE ELIXIR 75 MG, LIDOCAINE VISCOUS 2% 3... PO SCH ×6 (16:37→21:10)
[2022-07-02 18:40] LABS: Anisocytosis Slight; HCT 29.2 % (39.0-53.0); HGB 9.2 gm/dL (13.0-17.5); Hypochromasia Marked; MCH 31.6 pg (25.0-35.0); MCHC 31.5 g/dL (31.0-37.0); MCV 100.4 fL (80.0-100.0); Macrocytosis Moderate; Mean Platelet Volume 10.5; Poikilocytosis Slight; RBC 2.91 m/uL (4.30-5.90); RDW 18.7 % (11.5-15.5)
[2022-07-02 18:52] LABS: Calcium 9.1 mg/dL (8.4-10.2); Phosphorus 4.5 mg/dL (2.5-4.5); Potassium 4.7 mmol/L (3.5-5.1); Uric Acid 1.9 mg/dL (3.5-8.5)
[2022-07-02 19:23] LABS: Platelet Count 23 k/uL (150-450)
[2022-07-02 19:48] LABS: Basophilic Stippling Present; Poikilocytosis (M) Present; Polychromasia Present; Stomatocytes Present
[2022-07-02 19:52] LABS: Neutrophils % (M) 34 %
[2022-07-02 19:54] LABS: Nucleated Red Blood Cells 1 /100 WBC (0-0); Total Cells Counted 200
[2022-07-02 19:55] LABS: Blast Cells # (M) 96.03 k/uL (0); Eosinophils # (M) 8.73 k/uL (0-0.7); Lymphocytes # (M) 10.48 k/uL (1.0-4.8); Monocytes # (M) 1.75 k/uL (0-1.0); Neutrophils # (M) 59.36 k/uL (1.3-7.7); WBC 174.6 k/uL (3.8-10.6)
[2022-07-03] MEDS: SODIUM CHLORIDE 0.9% 1,000 ML IV SCH ×3 (00:02→16:59)
[2022-07-03] MEDS: SALT AND SODA MOUTHWASH 1,000 ML PO SCH ×5 (00:02→21:45)
--- NOTE | 2022-07-03 07:24 | CA ---
Transthoracic Echo Report Name: Estuardo Goyal Age: 61 Gender: M : 1960 Exam Date: 07/02/2022 13:15 Exam Location: [facility] Ht (in): 74 Wt (lb): 212 Ordering Physician: Hellen Garces Attending/Referring Phys: Credit Collections Rep Ana Garcia RDCS Procedure CPT: Indications: BASELINE, CARDIOTOXIC CHEMO Cardiac Hx: Technical Quality: Contrast 1: Total Dose (mL): Contrast 2: Total Dose (mL): MEASUREMENTS (Male / Female) Normal Values 2D ECHO LV Diastolic Diameter PLAX 4.8 cm 4.2 - 5.9 / 3.9 - 5.3 cm LV Systolic Diameter PLAX 3.0 cm IVS Diastolic Thickness 1.1 cm 0.6 - 1.0 / 0.6 - 0.9 cm LVPW Diastolic Thickness 1.0 cm 0.6 - 1.0 / 0.6 - 0.9 cm LV Relative Wall Thickness 0.4 RV Internal Dim ED PLAX 3.3 cm LA Systolic Diameter LX 3.3 cm 3.0 - 4.0 / 2.7 - 3.8 cm LA Volume 64.6 cm??? 18 - 58 / 22 - 52 cm??? M-MODE Aortic Root Diameter MM 3.8 cm MV E Point Septal Separation 0.4 cm AV Cusp Separation MM 2.6 cm DOPPLER AV Peak Velocity 163.5 cm/s AV Peak Gradient 10.7 mmHg MV Area PHT 3.2 cm??? Mitral E Point Velocity 93.3 cm/s Mitral A Point Velocity 87.3 cm/s Mitral E to A Ratio 1.1 MV Deceleration Time 240.2 ms MV E' Velocity 12.0 cm/s Mitral E to MV E' Ratio 7.8 TR Peak Velocity 276.8 cm/s TR Peak Gradient 30.6 mmHg Right Ventricular Systolic Press 35.4 mmHg FINDINGS Left Ventricle Left ventricular ejection fraction is estimated at 55-60 %. Left ventricular cavity size normal. Left ventricular wall thickness normal. Right Ventricle Mild right ventricular dilatation. Mild pulmonary hypertension. Right Atrium Normal right atrial size. Left Atrium Mildly increased left atrial volume. No evidence for an atrial septal defect. Mitral Valve Structurally normal mitral valve. No mitral stenosis, or prolapse.mild mitral regurgitation. Aortic Valve Trileaflet aortic valve. No aortic valve stenosis Tricuspid Valve Mild tricuspid regurgitation.structurally normal tricuspid valve. Pulmonic Valve Mild pulmonic regurgitation. Pericardium Normal pericardium. No pericardial effusion. Aorta Mild aortic dilatation at the level of the sinuses of valsalva 38 mm CONCLUSIONS 1. Normal size and systolic function 2. Mild mitral and tricuspid regurgitation 3. No pericardial effusion. Previewed by: Dr. Stanley Ryan MD (Electronically Signed) Final Date: 03 July 2022 07:23
[2022-07-03] MEDS: allopurinoL 300 MG TAB PO SCH (08:12)
[2022-07-03] MEDS: PANTOPRAZOLE 40 MG TABLET PO SCH (08:12)
[2022-07-03] MEDS: MAG HYDROX/AL HYDROX/SIMETH 30 ML, diphenhydrAMINE ELIXIR 75 MG, LIDOCAINE VISCOUS 2% 3... PO SCH ×9 (08:12→21:46)
[2022-07-03 09:38] LABS: African American GFR (CKD) 82.4 (60.0-200.0); Anion Gap 10.8 mmol/L (10.00-18.00); BUN/Creat Ratio 15.64 Ratio (12.00-20.00); Blood Urea Nitrogen 17.2 mg/dL (9.0-27.0); Calcium 9.2 mg/dL (8.7-10.3); Carbon Dioxide 24.2 mmol/L (20.0-27.5); Non-African American GFR(CKD) 71.1 (60.0-200.0); Phosphorus 4.9 mg/dL (2.4-5.1); Potassium 4.4 mmol/L (3.5-5.5); Uric Acid 1.4 mg/dL (3.7-8.7)
[2022-07-03] MEDS: ACETAMINOPHEN TAB 325 MG TAB PO PRN ×3 (11:26→21:50)
[2022-07-03 12:08] LABS: Anisocytosis (M) 2+; Basophils # (M) 0 X 10*3/uL (0.00-0.10); Blast Cells # (M) 95.53 k/uL (0); Eosinophils # (M) 1.99 X 10*3/uL (0.04-0.35); HCT 27.6 % (39.6-50.0); HGB 7.9 g/dL (13.0-17.0); Immature Platelet Fraction 13.5 % (1.1-6.1); Lymphocytes # (M) 5.97 X 10*3/uL (0.90-5.00); MCH 30.3 pg (27.0-32.0); MCHC 28.6 g/dL (32.0-37.0); MCV 105.7 fL (80.0-97.0); Macrocytosis (M) 2+; Mean Platelet Volume 11.7 fL (9.5-12.2); Monocytes # (M) 11.94 X 10*3/uL (0.20-1.00); NRBC Per 100 WBC 0.8 /100 WBCS (0.0-0.0); Neutrophils # (M) 79.61 X 10*3/uL (2.00-8.90); Neutrophils % (M) 40 %; Platelet Count 11 X 10*3/uL (140-440); Promyelocytes # (M) 3.98 k/uL (0); Promyelocytes % 2 % (0-0); RBC 2.61 X 10*6/uL (4.40-5.60); RDW 18.8 % (11.5-14.5); Smudge Cells PRESENT; WBC 199.02 X 10*3/uL (4.50-10.00)
--- NOTE | 2022-07-03 14:25 | P.PN ---
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 Objective - Vital Signs Vital signs: Vital Signs Temp 98.3 F 07/03/22 11:29 Pulse 89 07/03/22 11:29 Resp 16 07/03/22 11:29 BP 147/75 07/03/22 11:29 Pulse Ox 97 07/03/22 11:29 FiO2 Intake & Output 07/02/22 07/03/22 07/03/22 18:59 06:59 18:59 Intake Total 200 2280 480 Balance 200 2280 480 Weight 96.162 kg 104 kg Intake: IV 200 Intake, IV Titration 1560 Amount Sodium Chloride 0.9% 1, 1560 000 ml @ 125 mls/hr IV . Q8H [facility] Rx#:[id number] Oral 720 480 Other: Voiding Method Toilet Toilet Urinal Urinal # Voids 2 - Constitutional General appearance: Present: average body habitus, cooperative, no acute distress - EENT EENT Comment(s): wet purpura Eyes: Present: anicteric sclerae, EOMI ENT: Present: hearing grossly normal - Respiratory Respiratory: bilateral: CTA - Cardiovascular Rhythm: regular Heart sounds: normal: S1, S2 Abnormal Heart Sounds: Absent: systolic murmur, diastolic murmur, rub, S3 Gallop, S4 Gallop, click, other - Peripheral edema leg Peripheral Edema: bilateral: None - Gastrointestinal General gastrointestinal: Present: normal bowel sounds, soft - Integumentary Integumentary Comment(s): bruises on extremities - Neurologic Neurologic: Present: CNII-XII intact - Musculoskeletal Musculoskeletal: Present: strength equal bilaterally - Psychiatric Psychiatric: Present: A&O x's 3, appropriate affect, intact judgment & insight - Labs CBC & Chem 7: 07/03/22 06:12 07/03/22 06:12 Labs: Abnormal Lab Results - Last 24 Hours (Table) 07/02/22 07/02/22 07/02/22 Range/Units 10:15 18:26 18:26 WBC 174.6 H* (3.8-10.6) k/uL RBC 2.91 L (4.30-5.90) m/uL Hgb 9.2 L (13.0-17.5) gm/dL Hct 29.2 L (39.0-53.0) % MCV 100.4 H (80.0-100.0) fL MCHC (32.0-37.0) g/dL RDW 18.7 H (11.5-15.5) % Plt Count 23 L (150-450) k/uL Plt Count Comment Absolute Nucleated RBC (0.00-0.00) X 10*3/uL Promyelocytes % (0-0) % Blast Cells % 44 H* 55 H* % Neutrophils # (Manual) 52.10 H 59.36 H (1.3-7.7) k/uL Lymphocytes # (Manual) 7.90 H 10.48 H (1.0-4.8) k/uL Monocytes # (Manual) 11.06 H 1.75 H (0-1.0) k/uL Eosinophils # (Manual) 9.48 H 8.73 H (0-0.7) k/uL Metamyelocytes # (Man) 3.16 H (0) k/uL Myelocytes # (Manual) 4.74 H (0) k/uL Blast Cells # (Man) 69.52 H 96.03 H (0) k/uL Nucleated RBCs 1 H (0-0) /100 WBC NRBC/100 WBC Diff (0.0-0.0) /100 WBCS Immature Plt Fraction (1.1-6.1) % Retic Count 5.8 H (0.5-2.0) % Glucose 126 H (74-99) mg/dL Uric Acid 1.9 L (3.5-8.5) mg/dL Lactate Dehydrogenase 5695 H (313-618) U/L 07/03/22 07/03/22 Range/Units 06:12 06:12 WBC 199.02 H* (3.8-10.6) k/uL RBC 2.61 L (4.30-5.90) m/uL Hgb 7.9 L (13.0-17.5) gm/dL Hct 27.6 L (39.0-53.0) % MCV 105.7 H (80.0-100.0) fL MCHC 28.6 L (32.0-37.0) g/dL RDW 18.8 H (11.5-15.5) % Plt Count 11 L* (150-450) k/uL Plt Count Comment A Absolute Nucleated RBC 1.61 H (0.00-0.00) X 10*3/uL Promyelocytes % 2 H (0-0) % Blast Cells % 48 H* % Neutrophils # (Manual) 79.61 H (1.3-7.7) k/uL Lymphocytes # (Manual) 5.97 H (1.0-4.8) k/uL Monocytes # (Manual) 11.94 H (0-1.0) k/uL Eosinophils # (Manual) 1.99 H (0-0.7) k/uL Metamyelocytes # (Man) (0) k/uL Myelocytes # (Manual) (0) k/uL Blast Cells # (Man) (0) k/uL Nucleated RBCs (0-0) /100 WBC NRBC/100 WBC Diff 0.8 H (0.0-0.0) /100 WBCS Immature Plt Fraction 13.5 H (1.1-6.1) % Retic Count (0.5-2.0) % Glucose (74-99) mg/dL Uric Acid 1.4 L (3.5-8.5) mg/dL Lactate Dehydrogenase 2022 H (313-618) U/L - Imaging and Cardiology ECHO report reviewed Assessment and Plan (1) Spontaneous tumor lysis syndrome Current Visit: Yes Status: Acute Priority: High Code(s): E88.3 - TUMOR LYSIS SYNDROME SNOMED Code(s): 381475602 (2) Acute leukemia Current Visit: Yes Status: Acute Priority: High Code(s): C95.00 - ACUTE LEUKEMIA OF UNSP CELL TYPE NOT ACHIEVE REMISSION SNOMED Code(s): 06674880 Plan: Peripheral smear was reviewed. No kita rods, coags and fibrinogen normal. Immature blast cells noted. Dr. Bolaños discussed case with Pathology in [place]. Then reviewed case with Beauty Director Dr. Arauz in [place]. Most likely acute myeloid leukemia. As soon as a few more pieces of data are available will start induction chemo with 7+3. The disease process, prognosis, chemo, side effects, risks and anticipated complications all reviewed with patient. Pt is agreeable to proceed with treatment when enough info is available to confirm diagnosis. ECHO-LVEF 55-60%. PICC line inserted. Admitted to 5 [address] Oncology unit. Supportive medications ordered. Status post 1 dose of Elitek. Continue allopurinol 300 mg daily. Uric acid, LDH, and phos improved today CBC, metabolic panel and tumor lysis labs continue to be monitored daily. attests: I seen and examined patient, performed H&P, developed impression and plan of care. Discussed with dictator. Agree with dictation. Documented as a scribe. Time with Patient: Greater than 30
--- NOTE | 2022-07-03 14:55 | P.PN ---
Subjective Progress Note Date: 07/03/22 Principal diagnosis: weakness No overt bleeding. Still with easy bruising and purpura. No fevers, chills. No cp or sob. No n/v. Objective - Vital Signs Vital signs: Vital Signs Temp 98.3 F 07/03/22 11:29 Pulse 89 07/03/22 11:29 Resp 16 07/03/22 11:29 BP 147/75 07/03/22 11:29 Pulse Ox 97 07/03/22 11:29 FiO2 Intake & Output 07/02/22 07/03/22 07/03/22 18:59 06:59 18:59 Intake Total 200 2280 480 Balance 200 2280 480 Weight 96.162 kg 104 kg Intake: IV 200 Intake, IV Titration 1560 Amount Sodium Chloride 0.9% 1, 1560 000 ml @ 125 mls/hr IV . [facility]H [facility] Rx#:[id number] Oral 720 480 Other: Voiding Method Toilet Toilet Urinal Urinal # Voids 2 - Exam Constitutional: No acute distress, conversant, pleasant Eyes:Anicteric sclerae, moist conjunctiva, no lid-lag, PERRLA, ENMT: ecchymosis inside the oral cavity, no erythema, exudates Neck: Supple, FROM, no masses, or JVD, No carotid bruits, No thyromegaly Lungs: Clear to auscultation, Clear to percussion, Normal respiratory effort, no accessory muscle use Cardiovascular: Heart regular in rate and rhythm, No murmurs, gallops, or rubs, No peripheral edema Abdominal: Soft, Nontender, no guarding, rebound or rigidity, Normoactive bowel sounds, No hepatomegaly, + splenomegaly, No palpable mass Skin: +bruises all over the skin. Normal temperature, tone, texture, turgor, no induration, No subcutaneous nodules, No rash, lesions, No ulcers Extremities: No digital cyanosis, No clubbing, Pedal pulses intact and s ymmetrical, Radial pulses intact and symmetrical, No calf tenderness Psychiatric: Alert and oriented to person, place and time, appropriate affect, intact judgement Neuro: Muscles Strength 5/5 in all 4 extremities, Sensation to light touch grossly present throughout, Cranial nerves II-XII grossly intact, no focal sensory deficits - Labs CBC & Chem 7: 07/03/22 06:12 07/03/22 06:12 Labs: Abnormal Lab Results - Last 24 Hours (Table) 07/02/22 07/02/22 07/03/22 Range/Units 18:26 18:26 06:12 WBC 174.6 H* (3.8-10.6) k/uL RBC 2.91 L (4.30-5.90) m/uL Hgb 9.2 L (13.0-17.5) gm/dL Hct 29.2 L (39.0-53.0) % MCV 100.4 H (80.0-100.0) fL MCHC (32.0-37.0) g/dL RDW 18.7 H (11.5-15.5) % Plt Count 23 L (150-450) k/uL Plt Count Comment Absolute Nucleated RBC (0.00-0.00) X 10*3/uL Promyelocytes % (0-0) % Blast Cells % 55 H* % Neutrophils # (Manual) 59.36 H (1.3-7.7) k/uL Lymphocytes # (Manual) 10.48 H (1.0-4.8) k/uL Monocytes # (Manual) 1.75 H (0-1.0) k/uL Eosinophils # (Manual) 8.73 H (0-0.7) k/uL Blast Cells # (Man) 96.03 H (0) k/uL Nucleated RBCs 1 H (0-0) /100 WBC NRBC/100 WBC Diff (0.0-0.0) /100 WBCS Immature Plt Fraction (1.1-6.1) % Glucose 126 H (74-99) mg/dL Uric Acid 1.9 L 1.4 L (3.5-8.5) mg/dL Lactate Dehydrogenase 5695 H 2022 H (313-618) U/L 07/03/22 Range/Units 06:12 WBC 199.02 H* (3.8-10.6) k/uL RBC 2.61 L (4.30-5.90) m/uL Hgb 7.9 L (13.0-17.5) gm/dL Hct 27.6 L (39.0-53.0) % MCV 105.7 H (80.0-100.0) fL MCHC 28.6 L (32.0-37.0) g/dL RDW 18.8 H (11.5-15.5) % Plt Count 11 L* (150-450) k/uL Plt Count Comment A Absolute Nucleated RBC 1.61 H (0.00-0.00) X 10*3/uL Promyelocytes % 2 H (0-0) % Blast Cells % 48 H* % Neutrophils # (Manual) 79.61 H (1.3-7.7) k/uL Lymphocytes # (Manual) 5.97 H (1.0-4.8) k/uL Monocytes # (Manual) 11.94 H (0-1.0) k/uL Eosinophils # (Manual) 1.99 H (0-0.7) k/uL Blast Cells # (Man) (0) k/uL Nucleated RBCs (0-0) /100 WBC NRBC/100 WBC Diff 0.8 H (0.0-0.0) /100 WBCS Immature Plt Fraction 13.5 H (1.1-6.1) % Glucose (74-99) mg/dL Uric Acid (3.5-8.5) mg/dL Lactate Dehydrogenase (313-618) U/L Assessment and Plan Plan: Acute myeloid leukemia Management per hematology Started on hydroxyuria and allopurinol. Echo ok Normocytic anemia Workup per hematology Thrombocytopenia Per heme Hyperglycemia on admission A1c normal, no DM Hypokalemia Replaced Hyperlipidemia Continue statin
[2022-07-03 15:15] VITALS: BMI 29.4
[2022-07-03] MEDS ORDERED: HYDROXYUREA 500 MG CAP PO SCH (18:30)
[2022-07-04] MEDS: SALT AND SODA MOUTHWASH 1,000 ML PO SCH ×5 (00:26→21:41)
[2022-07-04] MEDS: SODIUM CHLORIDE 0.9% 1,000 ML IV SCH ×3 (00:27→15:18)
[2022-07-04] MEDS ORDERED: bisacodyL 5 MG TABLET.DR PO STA (01:35)
[2022-07-04] MEDS: allopurinoL 300 MG TAB PO SCH (07:55)
[2022-07-04] MEDS: MAG HYDROX/AL HYDROX/SIMETH 30 ML, diphenhydrAMINE ELIXIR 75 MG, LIDOCAINE VISCOUS 2% 3... PO SCH ×9 (07:55→21:40)
[2022-07-04] MEDS: PANTOPRAZOLE 40 MG TABLET PO SCH (07:55)
[2022-07-04] MEDS: ACETAMINOPHEN TAB 325 MG TAB PO PRN ×4 (11:15→23:17)
[2022-07-04] MEDS: ONDANSETRON 4 MG/2 ML VIAL IVP PRN (11:16)
[2022-07-04 11:19] LABS: African American GFR (CKD) 82.4 (60.0-200.0); Anion Gap 11.5 mmol/L (10.00-18.00); BUN/Creat Ratio 14.18 Ratio (12.00-20.00); Blood Urea Nitrogen 15.6 mg/dL (9.0-27.0); Calcium 8.6 mg/dL (8.7-10.3); Carbon Dioxide 22.5 mmol/L (20.0-27.5); Non-African American GFR(CKD) 71.1 (60.0-200.0); Potassium 3.5 mmol/L (3.5-5.5)
[2022-07-04 12:24] LABS: HCT 25.8 % (39.6-50.0); HGB 7.4 g/dL (13.0-17.0); MCHC 28.7 g/dL (32.0-37.0); MCV 107.9 fL (80.0-97.0); Mean Platelet Volume 10.6 fL (9.5-12.2); NRBC Per 100 WBC 1.5 /100 WBCS (0.0-0.0); RBC 2.39 X 10*6/uL (4.40-5.60); RDW 18.9 % (11.5-14.5)
[2022-07-04 12:49] LABS: Band Neutrophils % 4 %; Basophils # (M) 0 X 10*3/uL (0.00-0.10); Blast Cells # (M) 88.33 k/uL (0); Eosinophils # (M) 7.85 X 10*3/uL (0.04-0.35); Immature Platelet Fraction 13.4 % (1.1-6.1); Lymphocytes # (M) 7.85 X 10*3/uL (0.90-5.00); Metamyelocytes % 2 % (0-0); Monocytes # (M) 11.78 X 10*3/uL (0.20-1.00); Neutrophils % (M) 33 %; Promyelocytes # (M) 3.93 k/uL (0); Promyelocytes % 2 % (0-0)
--- NOTE | 2022-07-04 14:18 | P.PN ---
Subjective Progress Note Date: 07/04/22 Principal diagnosis: weakness Patient spiked a fever of 101.2 today. He received Tylenol and he is currently afebrile. No complaints of chest pain, shortness of breath, cough, no nausea or vomiting. Objective - Vital Signs Vital signs: Vital Signs Temp 98.8 F 07/04/22 11:10 Pulse 85 07/04/22 11:10 Resp 18 07/04/22 11:10 BP 155/76 07/04/22 11:10 Pulse Ox 95 07/04/22 11:10 FiO2 Intake & Output 07/03/22 07/04/22 07/04/22 18:59 06:59 18:59 Intake Total 1979 500 Balance 1979 500 Weight 104 kg 108 kg Intake: Intake, IV Titration 1500 Amount Sodium Chloride 0.9% 1, 1500 000 ml @ 125 mls/hr IV . Q8H [facility] Rx#:[id number] Oral 480 500 Other: Voiding Method Toilet Urinal # Voids 2 - Exam Constitutional: No acute distress, conversant, pleasant Eyes:Anicteric sclerae, moist conjunctiva, no lid-lag, PERRLA, ENMT: ecchymosis inside the oral cavity, no erythema, exudates Neck: Supple, FROM, no masses, or JVD, No carotid bruits, No thyromegaly Lungs: Clear to auscultation, Clear to percussion, Normal respiratory effort, no accessory muscle use Cardiovascular: Heart regular in rate and rhythm, No murmurs, gallops, or rubs, No peripheral edema Abdominal: Soft, Nontender, no guarding, rebound or rigidity, Normoactive bowel sounds, No hepatomegaly, + splenomegaly, No palpable mass Skin: +bruises all over the skin. Normal temperature, tone, texture, turgor, no induration, No subcutaneous nodules, No rash, lesions, No ulcers Extremities: No digital cyanosis, No clubbing, Pedal pulses intact and symmetrical, Radial pulses intact and symmetrical, No calf tenderness Psychiatric: Alert and oriented to person, place and time, appropriate affect, intact judgement Neuro: Muscles Strength 5/5 in all 4 extremities, Sensation to light touch grossly present throughout, Cranial nerves II-XII grossly intact, no focal sensory deficits - Labs CBC & Chem 7: 07/04/22 06:22 08/25/22 06:22 Labs: Abnormal Lab Results - Last 24 Hours (Table) 07/03/22 07/04/22 07/04/22 Range/Units 06:12 06:22 06:22 WBC 196.28 H* (4.50-10.00) X 10*3/uL RBC 2.39 L (4.40-5.60) X 10*6/uL Hgb 7.4 L (13.0-17.0) g/dL Hct 25.8 L (39.6-50.0) % MCV 107.9 H (80.0-97.0) fL MCHC 28.7 L (32.0-37.0) g/dL RDW 18.9 H (11.5-14.5) % Plt Count 10 L* (140-440) X 10*3/uL Plt Count Comment A Absolute Nucleated RBC 2.91 H (0.00-0.00) X 10*3/uL Metamyelocytes % 2 H (0-0) % Promyelocytes % 2 H (0-0) % Blast Cells % 45 H* (0-0) % Neutrophils # (Manual) 72.62 H (2.00-8.90) X 10*3/uL Lymphocytes # (Manual) 7.85 H (0.90-5.00) X 10*3/uL Monocytes # (Manual) 11.78 H (0.20-1.00) X 10*3/uL Eosinophils # (Manual) 7.85 H (0.04-0.35) X 10*3/uL Promyelocytes # (Man) 3.98 H (0) k/uL Blast Cells # (Man) 95.53 H (0) k/uL NRBC/100 WBC Diff 1.5 H (0.0-0.0) /100 WBCS Immature Plt Fraction 13.4 H (1.1-6.1) % Calcium 8.6 L (8.7-10.3) mg/dL Assessment and Plan Plan: Acute myeloid leukemia Management per hematology Started on hydroxyuria and allopurinol. Discussed with hematology, planning to start chemo today Echo ok Normocytic anemia Workup per hematology Thrombocytopenia Per heme Fever of unknown origin Blood cultures sent Check UA and CXR Hyperglycemia on admission A1c normal, no DM Hypokalemia Replaced Hyperlipidemia Continue statin
[2022-07-04] MEDS: SENNOSIDES-DOCUSATE SODIUM 1 EACH TAB PO SCH (15:13)
--- NOTE | 2022-07-04 15:43 | XR ---
EXAMINATION TYPE: XR chest 2V DATE OF EXAM: 07/04/2022 3:32 PM COMPARISON: Chest radiographs from 07/01/2022, IR CVC insertion 07/02/2022. TECHNIQUE: XR chest 2V Frontal and lateral views of the chest. CLINICAL INDICATION:Male, 61 years old with history of fever; FINDINGS: Lungs/Pleura: There is no evidence of pleural effusion, focal consolidation, or pneumothorax. Pulmonary vascularity: Unremarkable. Heart/mediastinum: Cardiomediastinal silhouette is unremarkable. Musculoskeletal: No acute osseous pathology. Partial visualization of cervical fusion hardware. Interval retraction of left PICC line which is coiled over the left apex with tip likely within the l eft brachiocephalic vein. IMPRESSION: Interval retraction of left PICC line with coiled appearance over the left apex and distal tip likely within the left brachiocephalic vein. Repositioning is recommended.
[2022-07-04 15:45] LABS: Appearance,Urine Clear (Clear); Bilirubin,Urine Negative (Negative); Blood,Urine Negative (Negative); Color,Urine Light Yellow; Glucose,Urine (UA) Negative (Negative); Ketones,Urine Negative (Negative); Leukocyte Esterase,Urine Negative (Negative); Nitrite,Urine Negative (Negative); PH, Urine 6.5 (5.0-8.0); Protein,Urine Negative (Negative); Specific Gravity,Urine 1.005 (1.001-1.035); Urobilinogen,Urine <2.0 mg/dL (<2.0)
[2022-07-04] MEDS ORDERED: HYDROXYUREA 500 MG CAP PO STA (18:11)
--- NOTE | 2022-07-04 18:15 | P.PN ---
Subjective Progress Note Date: 07/04/22 Principal diagnosis: Peripheral blasts, highly suspect AML In f/u pt denies overt bleeding, he has hematoma after a blood draw. Bruising persists but is not progressive at this time. Oral purpura, buccal areas healing, new lesion on the soft palet. SOB when active, no chast pain, fevers, he did have nausea which he associates with constipation, he feels he may have a BM today. Objective - Vital Signs Vital signs: Vital Signs Temp 98.8 F 07/04/22 11:10 Pulse 85 07/04/22 11:10 Resp 18 07/04/22 11:10 BP 155/76 07/04/22 11:10 Pulse Ox 95 07/04/22 11:10 FiO2 Intake & Output 07/03/22 07/04/22 07/04/22 18:59 06:59 18:59 Intake Total 9383 211 8392 Balance 9384 702 5130 Weight 104 kg 108 kg Intake: Intake, IV Titration 1500 1500 Amount Sodium Chloride 0.9% 1, 1500 1500 000 ml @ 125 mls/hr IV . Q8H [facility] Rx#:[id number] Oral 480 500 Other: Voiding Method Toilet Urinal # Voids 2 4 - Constitutional General appearance: Present: average body habitus, cooperative, no acute distress - EENT EENT Comment(s): wet purpura, persistent, not progressive-some healing, 1 new Eyes: Present: anicteric sclerae, EOMI ENT: Present: hearing grossly normal - Respiratory Respiratory: bilateral: CTA - Cardiovascular Rhythm: regular Heart sounds: normal: S1, S2 Abnormal Heart Sounds: Absent: systolic murmur, diastolic murmur, rub, S3 Gallop, S4 Gallop, click, other - Peripheral edema leg Peripheral Edema: bilateral: None - Gastrointestinal General gastrointestinal: Present: normal bowel sounds, soft - Integumentary Integumentary Comment(s): bruises on extremities, has rt AC hematoma from blood draw - Neurologic Neurologic: Present: CNII-XII intact - Musculoskeletal Musculoskeletal: Present: strength equal bilaterally - Psychiatric Psychiatric: Present: A&O x's 3, appropriate affect, intact judgment & insight - Labs CBC & Chem 7: 07/04/22 06:22 07/04/22 06:22 Labs: Abnormal Lab Results - Last 24 Hours (Table) 08/07/04/22 07/04/22 Range/Units 06:12 06:22 06:22 WBC 196.28 H* (4.50-10.00) X 10*3/uL RBC 2.39 L (4.40-5.60) X 10*6/uL Hgb 7.4 L (13.0-17.0) g/dL Hct 25.8 L (39.6-50.0) % MCV 107.9 H (80.0-97.0) fL MCHC 28.7 L (32.0-37.0) g/dL RDW 18.9 H (11.5-14.5) % Plt Count 10 L* (140-440) X 10*3/uL Plt Count Comment A Absolute Nucleated RBC 2.91 H (0.00-0.00) X 10*3/uL Metamyelocytes % 2 H (0-0) % Promyelocytes % 2 H (0-0) % Blast Cells % 45 H* (0-0) % Neutrophils # (Manual) 72.62 H (2.00-8.90) X 10*3/uL Lymphocytes # (Manual) 7.85 H (0.90-5.00) X 10*3/uL Monocytes # (Manual) 11.78 H (0.20-1.00) X 10*3/uL Eosinophils # (Manual) 7.85 H (0.04-0.35) X 10*3/uL Promyelocytes # (Man) 3.98 H 3.93 H (0) k/uL Blast Cells # (Man) 95.53 H 88.33 H (0) k/uL NRBC/100 WBC Diff 1.5 H (0.0-0.0) /100 WBCS Immature Plt Fraction 13.4 H (1.1-6.1) % Calcium 8.6 L (8.7-10.3) mg/dL Assessment and Plan (1) Spontaneous tumor lysis syndrome Current Visit: Yes Status: Acute Priority: High Code(s): E88.3 - TUMOR LYSIS SYNDROME SNOMED Code(s): 119398045 (2) Acute leukemia Current Visit: Yes Status: Acute Priority: High Code(s): C95.00 - ACUTE LEUKEMIA OF UNSP CELL TYPE NOT ACHIEVE REMISSION SNOMED Code(s): 17052158 Plan: Peripheral smear was reviewed. No kita rods, coags and fibrinogen normal. Immature blast cells noted. Dr. Bolaños discussed case with Pathology in [place] yesterday, discussed with [employer] Dr. Arauz in [place]. Most likely acute myeloid leukemia. Plan to start induction chemo with 7+3, orders will be written today. The disease process, prognosis, chemo, side effects, risks and ant icipated complications all reviewed with patient again. SE of chemo discussed. Pt is agreeable to proceed with treatment ECHO-LVEF 55-60%. PICC line inserted-report reads that line is in brachialc ephalic vein, needs repositioning, RN will contact Radiology in AM. Admitted to 5 N Oncology unit. Supportive medications ordered. Status post 1 dose of Elitek. Continue allopurinol 300 mg daily. Uric acid, LDH, and phos stable today. CBC, metabolic panel and tumor lysis labs continue to be monitored daily. Pt did have a fever, pancultures ordered. No abx just yet. attests: I seen and examined patient, performed H&P, developed impression and plan of care. Discussed with dictator. Agree with dictation. Documented as a scribe.
[2022-07-05] MEDS: SALT AND SODA MOUTHWASH 1,000 ML PO SCH ×5 (03:12→21:12)
[2022-07-05] MEDS: ACETAMINOPHEN TAB 325 MG TAB PO PRN ×2 (03:17→07:32)
[2022-07-05] MEDS: SODIUM CHLORIDE 0.9% 1,000 ML IV SCH ×2 (03:19→17:16)
[2022-07-05] MEDS: ONDANSETRON 4 MG/2 ML VIAL IVP PRN (06:35)
[2022-07-05] MEDS: PANTOPRAZOLE 40 MG TABLET PO SCH (07:32)
[2022-07-05 08:47] LABS: Neutrophils # (M) 72.62 (2.00-8.90); Platelet Count 10 X 10*3/uL (140-440); WBC 196.28 X 10*3/uL (4.50-10.00)
[2022-07-05] MEDS: SENNOSIDES-DOCUSATE SODIUM 1 EACH TAB PO SCH ×2 (09:02→19:25)
[2022-07-05] MEDS: allopurinoL 300 MG TAB PO SCH (09:02)
[2022-07-05] MEDS: MAG HYDROX/AL HYDROX/SIMETH 30 ML, diphenhydrAMINE ELIXIR 75 MG, LIDOCAINE VISCOUS 2% 3... PO SCH ×9 (09:03→21:12)
[2022-07-05 11:20] LABS: African American GFR (CKD) 74.1 (60.0-200.0); Albumin 3.4 g/dL (3.8-4.9); Albumin/Globulin Ratio 1.1 (1.60-3.17); Anion Gap 9.3 mmol/L (10.00-18.00); BUN/Creat Ratio 14.25 Ratio (12.00-20.00); Blood Urea Nitrogen 17.1 mg/dL (9.0-27.0); Calcium 8.6 mg/dL (8.7-10.3); Carbon Dioxide 25.7 mmol/L (20.0-27.5); Globulin 3.1 g/dL (1.6-3.3); Phosphorus 4.6 mg/dL (2.4-5.1); Potassium 3.5 mmol/L (3.5-5.5); Total Bilirubin 0.6 mg/dL (0.30-1.20); Total Protein 6.5 g/dL (6.2-8.2)
[2022-07-05] MEDS: HYDROcodone/APAP 5-325MG 1 EACH TAB PO PRN ×2 (11:43→15:36)
[2022-07-05 12:23] LABS: INR 1.1 (<1.2); Partial Thromboplastin Time 25.6 sec (22.0-30.0); Prothrombin Time 11.5 sec (9.0-12.0)
[2022-07-05 13:27] LABS: Basophils # (M) 0 X 10*3/uL (0.00-0.10); Eosinophils # (M) 5.56 X 10*3/uL (0.04-0.35); HCT 24.4 % (39.6-50.0); Immature Platelet Fraction 14.4 % (1.1-6.1); Lymphocytes # (M) 18.52 X 10*3/uL (0.90-5.00); MCHC 28.7 g/dL (32.0-37.0); Mean Platelet Volume 10.3 fL (9.5-12.2); Metamyelocytes % 3 % (0-0); Monocytes # (M) 18.52 X 10*3/uL (0.20-1.00); NRBC Per 100 WBC 1.3 /100 WBCS (0.0-0.0); Neutrophils # (M) 51.86 X 10*3/uL (2.00-8.90); Neutrophils % (M) 28 %; Nucleated Red Blood Cells 4 /100 WBCS; Platelet Count 9 X 10*3/uL (140-440); RBC 2.26 X 10*6/uL (4.40-5.60); RDW 18.8 % (11.5-14.5); WBC 185.21 X 10*3/uL (4.50-10.00)
--- NOTE | 2022-07-05 14:35 | P.PN ---
Subjective Progress Note Date: 07/05/22 Principal diagnosis: weakness Patient feeling okay other than bilateral lower extremities pain. No fevers. No chest pain or shortness of breath. No nausea or vomiting. Objective - Vital Signs Vital signs: Vital Signs Temp 98.5 F 07/05/22 04:47 Pulse 83 07/05/22 04:47 Resp 14 07/05/22 04:47 BP 130/72 07/05/22 04:47 Pulse Ox 94 L 07/05/22 04:47 FiO2 Intake & Output 07/04/22 07/05/22 07/05/22 18:59 06:59 18:59 Intake Total 1500 Balance 1500 Weight 108 kg Intake: Intake, IV Titration 1500 Amount Sodium Chloride 0.9% 1, 1500 000 ml @ 125 mls/hr IV . Q8H [facility] Rx#:[id number] Other: Voiding Method Toilet Toilet Urinal Urinal # Voids 4 - Exam Constitutional: No acute distress, conversant, pleasant Eyes:Anicteric sclerae, moist conjunctiva, no lid-lag, PERRLA, ENMT: ecchymosis inside the oral cavity, no erythema, exudates Neck: Supple, FROM, no masses, or JVD, No carotid bruits, No thyromegaly Lungs: Clear to auscultation, Clear to percussion, Normal respiratory effort, no accessory muscle use Cardiovascular: Heart regular in rate and rhythm, No murmurs, gallops, or rubs, No peripheral edema Abdominal: Soft, Nontender, no guarding, rebound or rigidity, Normoactive bowel sounds, No hepatomegaly, + splenomegaly, No palpable mass Skin: +bruises all over the skin. Normal temperature, tone, texture, turgor, no induration, No subcutaneous nodules, No rash, lesions, No ulcers Extremities: No digital cyanosis, No clubbing, Pedal pulses intact and symmetric al, Radial pulses intact and symmetrical, No calf tenderness Psychiatric: Alert and oriented to person, place and time, appropriate affect, intact judgement Neuro: Muscles Strength 5/5 in all 4 extremities, Sensation to light touch grossly present throughout, Cranial nerves II-XII grossly intact, no focal sensory deficits - Labs CBC & Chem 7: 07/05/22 06:33 07/05/22 06:33 Labs: Abnormal Lab Results - Last 24 Hours (Table) 07/04/22 07/05/22 07/05/22 Range/Units 06:22 06:33 06:33 WBC 196.28 H* 185.21 H* (4.50-10.00) X 10*3/uL RBC 2.26 L (4.40-5.60) X 10*6/uL Hgb 7.0 L (13.0-17.0) g/dL Hct 24.4 L (39.6-50.0) % MCV 108.0 H (80.0-97.0) fL MCHC 28.7 L (32.0-37.0) g/dL RDW 18.8 H (11.5-14.5) % Plt Count 10 L* 9 L* (140-440) X 10*3/uL Plt Count Comment A Absolute Nucleated RBC 2.42 H (0.00-0.00) X 10*3/uL Metamyelocytes % 3 H (0-0) % Blast Cells % 46 H* (0-0) % Neutrophils # (Manual) 51.86 H (2.00-8.90) X 10*3/uL Lymphocytes # (Manual) 18.52 H (0.90-5.00) X 10*3/uL Monocytes # (Manual) 18.52 H (0.20-1.00) X 10*3/uL Eosinophils # (Manual) 5.56 H (0.04-0.35) X 10*3/uL Promyelocytes # (Man) 3.93 H (0) k/uL Blast Cells # (Man) 88.33 H (0) k/uL NRBC/100 WBC Diff 1.3 H (0.0-0.0) /100 WBCS Immature Plt Fraction 14.4 H (1.1-6.1) % Anion Gap 9.30 L (10.00-18.00) mmol/L Calcium 8.6 L (8.7-10.3) mg/dL AST 108 H (14-35) U/L ALT 89 H (10-49) U/L Alkaline Phosphatase 259 H (41-126) U/L Lactate Dehydrogenase (313-618) U/L Albumin 3.4 L (3.8-4.9) g/dL Albumin/Globulin Ratio 1.10 L (1.60-3.17) g/dL 07/05/22 Range/Units 11:48 WBC (4.50-10.00) X 10*3/uL RBC (4.40-5.60) X 10*6/uL Hgb (13.0-17.0) g/dL Hct (39.6-50.0) % MCV (80.0-97.0) fL MCHC (32.0-37.0) g/dL RDW (11.5-14.5) % Plt Count (140-440) X 10*3/uL Plt Count Comment Absolute Nucleated RBC (0.00-0.00) X 10*3/uL Metamyelocytes % (0-0) % Blast Cells % (0-0) % Neutrophils # (Manual) (2.00-8.90) X 10*3/uL Lymphocytes # (Manual) (0.90-5.00) X 10*3/uL Monocytes # (Manual) (0.20-1.00) X 10*3/uL Eosinophils # (Manual) (0.04-0.35) X 10*3/uL Promyelocytes # (Man) (0) k/uL Blast Cells # (Man) (0) k/uL NRBC/100 WBC Diff (0.0-0.0) /100 WBCS Immature Plt Fraction (1.1-6.1) % Anion Gap (10.00-18.00) mmol/L Calcium (8.7-10.3) mg/dL AST (14-35) U/L ALT (10-49) U/L Alkaline Phosphatase (41-126) U/L Lactate Dehydrogenase 5971 H (313-618) U/L Albumin (3.8-4.9) g/dL Albumin/Globulin Ratio (1.60-3.17) g/dL Microbiology - Last 24 Hours (Table) 07/04/22 10:03 Blood Culture - Preliminary Blood No Growth after 24 hours Assessment and Plan Plan: Acute myeloid leukemia Management per hematology Started on hydroxyuria and allopurinol. Discussed with hematology, planning to start chemo Echo ok Normocytic anemia Workup per hematology Thrombocytopenia Per heme Fever of unknown origin Blood cultures negative so far UA and CXR negative Hyperglycemia on admission A1c normal, no DM Hypokalemia Replaced Hyperlipidemia Continue statin
--- NOTE | 2022-07-05 14:43 | IR ---
PICC line replacement HISTORY: Abnormal chest xray, looped picc line Under real-time fluoroscopy the catheter was noted to be looped in the left upper chest. Following informed consent the skin around the catheter was prepped as was the catheter. Patient was draped. Lidocaine used for local anesthesia. Catheter was partially withdrawn and cut. Wire was used to exchange the indwelling catheter for a peel-away sheath. Catheter was tailored to appropriate sal th and advanced such that the distal tip is at the cavoatrial junction, spot image obtained verifying placement. Catheter was fixed to the skin. Hemostasis achieved. Catheter was aspirated and flushed w ith sterile saline. No immediate complication. Catheter length 45cm. IMPRESSION: Status post PICC line exchange. This procedure performed by the undersigned.
[2022-07-05] MEDS: FAMOTIDINE 20 MG/2 ML VIAL IV SCH (17:34)
[2022-07-05] MEDS: DEXAMETHASONE SOD PHOSPHATE 10 MG/ML 1 ML VIAL IVP SCH (17:35)
[2022-07-05] MEDS: ONDANSETRON 16 MG in SODIUM CHLORIDE 0.9% 50 ML IVPB SCH (17:35)
[2022-07-05] MEDS: IDArubicin HCL 20 MG, IDArubicin HCL 4 MG in EMPTY SYRINGE 1 SYR IV SCH ×2 (18:05)
[2022-07-05] MEDS: SODIUM CHLORIDE 0.9% IV SCH (18:31)
[2022-07-05] MEDS: CYTARABINE IV SCH (18:31)
[2022-07-05] MEDS: HYDROcodone/APAP 10-325MG 1 EACH TAB PO PRN (19:25)
--- NOTE | 2022-07-05 21:01 | P.PN ---
Subjective Progress Note Date: 07/05/22 Induction Day One Objective - Vital Signs Vital signs: Vital Signs Temp 98.5 F 07/05/22 04:47 Pulse 83 07/05/22 04:47 Resp 14 07/05/22 04:47 BP 130/72 07/05/22 04:47 Pulse Ox 94 L 07/05/22 04:47 FiO2 Intake & Output 07/04/22 07/05/22 07/05/22 18:59 06:59 18:59 Intake Total 1500 Balance 1500 Weight 108 kg Intake: Intake, IV Titration 1500 Amount Sodium Chloride 0.9% 1, 1500 000 ml @ 125 mls/hr IV . Q8H [facility] Rx#:[id number] Other: Voiding Method Toilet Toilet Urinal Urinal # Voids 4 - Exam Constitutional General appearance: Present: average body habitus, cooperative, no acute distress - EENT EENT Comment(s): wet purpura, persistent, not progressive-some healing, 1 new Eyes: Present: anicteric sclerae, EOMI ENT: Present: hearing grossly normal - Respiratory Respiratory: bilateral: CTA - Cardiovascular Rhythm: regular Heart sounds: normal: S1, S2 Abnormal Heart Sounds: Absent: systolic murmur, diastolic murmur, rub, S3 Gallop, S4 Gallop, click, other - Peripheral edema leg Peripheral Edema: bilateral: None - Gastrointestinal General gastrointestinal: Present: normal bowel sounds, soft - Integumentary Integumentary Comment(s): bruises on extremities, has rt AC hematoma from blood draw - Neurologic Neurologic: Present: CNII-XII intact - Musculoskeletal Musculoskeletal: Present: strength equal bilaterally - Psychiatric Psychiatric: Present: A&O x's 3, appropriate affect, intact judgment & insight - Labs CBC & Chem 7: 07/05/22 06:33 07/05/22 06:33 Labs: Abnormal Lab Results - Last 24 Hours (Table) 07/04/22 07/05/22 Range/Units 06:22 06:33 WBC 196.28 H* (4.50-10.00) X 10*3/uL RBC 2.39 L (4.40-5.60) X 10*6/uL Hgb 7.4 L (13.0-17.0) g/dL Hct 25.8 L (39.6-50.0) % MCV 107.9 H (80.0-97.0) fL MCHC 28.7 L (32.0-37.0) g/dL RDW 18.9 H (11.5-14.5) % Plt Count 10 L* (140-440) X 10*3/uL Plt Count Comment A Absolute Nucleated RBC 2.91 H (0.00-0.00) X 10*3/uL Metamyelocytes % 2 H (0-0) % Promyelocytes % 2 H (0-0) % Blast Cells % 45 H* (0-0) % Lymphocytes # (Manual) 7.85 H (0.90-5.00) X 10*3/uL Monocytes # (Manual) 11.78 H (0.20-1.00) X 10*3/uL Eosinophils # (Manual) 7.85 H (0.04-0.35) X 10*3/uL Promyelocytes # (Man) 3.93 H (0) k/uL Blast Cells # (Man) 88.33 H (0) k/uL NRBC/100 WBC Diff 1.5 H (0.0-0.0) /100 WBCS Immature Plt Fraction 13.4 H (1.1-6.1) % Anion Gap 9.30 L (10.00-18.00) mmol/L Calcium 8.6 L (8.7-10.3) mg/dL AST 108 H (14-35) U/L ALT 89 H (10-49) U/L Alkaline Phosphatase 259 H (41-126) U/L Albumin 3.4 L (3.8-4.9) g/dL Albumin/Globulin Ratio 1.10 L (1.60-3.17) g/dL Assessment and Plan Plan: Assessment and Plan (1) Spontaneous tumor lysis syndrome Current Visit: Yes Status: Acute Priority: High Code(s): E88.3 - TUMOR LYSIS SYNDROME SNOMED Code(s): 121988164 (2) Acute leukemia Current Visit: Yes Status: Acute Priority: High Code(s): C95.00 - ACUTE LEUKEMIA OF UNSP CELL TYPE NOT ACHIEVE REMISSION SNOMED Code(s): 70762840 Plan: Peripheral smear was reviewed. No kita rods, coags and fibrinogen normal. Immature blast cells noted. Dr. Bolaños discussed case with Pathology in [place] yesterday, discussed with Software Security Consultant Dr. Arauz in [place]. Most likely acute myeloid leukemia. Plan to start induction chemo with 7+3, orders will be written today. The disease process, prognosis, chemo, side effects, risks and anticipa jessie complications all reviewed with patient again. SE of chemo discussed. Pt is agreeable to proceed with treatment ECHO-LVEF 55-60%. PICC line inserted-report reads that line is in brachialcephalic vein, needs repositioning, RN will contact Radiology in AM. Admitted to 5 N Oncology unit. Supportive medications ordered.' Status post 1 dose of Elitek. Continue allopurinol 300 mg daily. Uric acid, LDH, and phos stable today. CBC, metabolic panel and tumor lysis labs continue to be monitored daily. Pt did have a fever, pancultures ordered. No abx just yet. Induction therapy Day One Daily TLS CBC CMP labs Dr. Snider: I have completed the full history and physical and developed the above impression and plan, agree with dictation, dictated as a ascribe.
[2022-07-06] MEDS: HYDROcodone/APAP 10-325MG 1 EACH TAB PO PRN ×6 (00:46→23:56)
[2022-07-06] MEDS: SODIUM CHLORIDE 0.9% 1,000 ML IV SCH ×4 (00:48→16:10)
[2022-07-06] MEDS: SALT AND SODA MOUTHWASH 1,000 ML PO SCH ×6 (00:48→23:57)
[2022-07-06 06:37] LABS: Anisocytosis Moderate; HCT 24.5 % (39.0-53.0); HGB 8.4 gm/dL (13.0-17.5); Hypochromasia Marked; MCH 35.1 pg (25.0-35.0); MCHC 34.4 g/dL (31.0-37.0); Macrocytosis Moderate; Mean Platelet Volume 10.1; Platelet Count 27 k/uL (150-450); Poikilocytosis Slight; RDW 20.2 % (11.5-15.5)
[2022-07-06 06:45] LABS: ALT 89 U/L (4-49); AST 100 U/L (17-59); African American GFR (CKD) >90 (>60 ml/min/1.73 sqM); Albumin 3.5 g/dL (3.5-5.0); Albumin/Globulin Ratio 1.1; Alkaline Phosphatase 301 U/L (38-126); Anion Gap 11 mmol/L; Blood Urea Nitrogen 20 mg/dL (9-20); Calcium 8.3 mg/dL (8.4-10.2); Carbon Dioxide 26 mmol/L (22-30); Chloride 100 mmol/L (98-107); Globulin 3.3 g/dL; Glucose 133 mg/dL (74-99); Non-African American GFR(CKD) 78 (>60 ml/min/1.73 sqM); Potassium 4.1 mmol/L (3.5-5.1); Sodium 137 mmol/L (137-145); Total Bilirubin 0.7 mg/dL (0.2-1.3); Total Protein 6.8 g/dL (6.3-8.2); Uric Acid 5.2 mg/dL (3.5-8.5)
[2022-07-06 06:54] LABS: WBC 171.7 k/uL (3.8-10.6)
[2022-07-06 07:03] LABS: INR 1.1 (<1.2); Partial Thromboplastin Time 25.3 sec (22.0-30.0); Prothrombin Time 11.9 sec (9.0-12.0)
[2022-07-06] MEDS: SENNOSIDES-DOCUSATE SODIUM 1 EACH TAB PO SCH ×2 (08:14→20:14)
[2022-07-06] MEDS: allopurinoL 300 MG TAB PO SCH (08:14)
[2022-07-06] MEDS: PANTOPRAZOLE 40 MG TABLET PO SCH (08:14)
[2022-07-06] MEDS: MAG HYDROX/AL HYDROX/SIMETH 30 ML, diphenhydrAMINE ELIXIR 75 MG, LIDOCAINE VISCOUS 2% 3... PO SCH ×9 (08:15→20:15)
[2022-07-06 10:09] LABS: Band Neutrophils % 2 %; Blast Cells # (M) 66.96 k/uL (0); Eosinophils # (M) 5.15 k/uL (0-0.7); Metamyelocytes # (M) 3.43 k/uL (0); Metamyelocytes % 2 %; Monocytes # (M) 5.15 k/uL (0-1.0); Myelocytes # (M) 5.15 k/uL (0); Myelocytes % 3 %; Neutrophils % (M) 43 %; Nucleated Red Blood Cells 0 /100 WBC (0-0); Total Cells Counted 200
[2022-07-06 10:11] LABS: Polychromasia Present
[2022-07-06] MEDS: MAGNESIUM HYDROXIDE 2,400 MG/10 ML CUP PO PRN (12:21)
--- NOTE | 2022-07-06 12:37 | P.PN ---
Subjective Progress Note Date: 07/06/22 Principal diagnosis: weakness Feeling better than he felt in weeks he said. No fevers or chills. No significant pain. Objective - Vital Signs Vital signs: Vital Signs Temp 98.4 F 07/06/22 08:25 Pulse 85 07/06/22 08:25 Resp 18 07/06/22 08:25 BP 142/74 07/06/22 08:25 Pulse Ox 96 07/06/22 08:25 FiO2 Intake & Output 07/05/22 07/06/22 07/06/22 18:59 06:59 18:59 Intake Total 1846 1750 780 Balance 184 1750 780 Weight 107.5 kg Intake: Intake, IV Titration 1500 1500 Amount Sodium Chloride 0.9% 1, 1500 1500 000 ml @ 125 mls/hr IV . Q8H [facility] Rx#:[id number] Oral 250 780 Blood Product 346 Platelet Pheresis Pas 346 Psoralen Unit [id number] Other: Voiding Method Toilet Toilet Urinal Urinal # Voids 3 - Exam Constitutional: No acute distress, conversant, pleasant Eyes:Anicteric sclerae, moist conjunctiva, no lid-lag, PERRLA, ENMT: ecchymosis inside the oral cavity, no erythema, exudates Neck: Supple, FROM, no masses, or JVD, No carotid bruits, No thyromegaly Lungs: Clear to auscultation, Clear to percussion, Normal respiratory effort, no accessory muscle use Cardiovascular: Heart regular in rate and rhythm, No murmurs, gallops, or rubs, No peripheral edema Abdominal: Soft, Nontender, no guarding, rebound or rigidity, Normoactive bowel sounds, No hepatomegaly, + splenomegaly, No palpable mass Skin: +bruises all over the skin. Normal temperature, tone, texture, turgor, no induration, No subcutaneous nodules, No rash, lesions, No ulcers Extremities: No digital cyanosis, No clubbing, Pedal pulses intact and symmetrical, Radial pulses intact and symmetrical, No calf tenderness Psychiatric: Alert and oriented to person, place and time, appropriate affect, intact judgement Neuro: Muscles Strength 5/5 in all 4 extremities, Sensation to light touch grossly present throughout, Cranial nerves II-XII grossly intact, no focal sensory deficits - Labs CBC & Chem 7: 07/06/22 05:58 07/06/22 05:58 Labs: Abnormal Lab Results - Last 24 Hours (Table) 07/05/22 07/05/22 07/06/22 Range/Units 06:33 11:48 05:58 WBC 185.21 H* 171.7 H* (4.50-10.00) X 10*3/uL RBC 2.26 L 2.40 L (4.40-5.60) X 10*6/uL Hgb 7.0 L 8.4 L (13.0-17.0) g/dL Hct 24.4 L 24.5 L (39.6-50.0) % MCV 108.0 H 102.0 H (80.0-97.0) fL MCH 35.1 H (25.0-35.0) pg MCHC 28.7 L (32.0-37.0) g/dL RDW 18.8 H 20.2 H (11.5-14.5) % Plt Count 9 L* 27 L (140-440) X 10*3/uL Plt Count Comment A Absolute Nucleated RBC 2.42 H (0.00-0.00) X 10*3/uL Metamyelocytes % 3 H (0-0) % Blast Cells % 46 H* 39 H* (0-0) % Neutrophils # (Manual) 51.86 H 77.20 H (2.00-8.90) X 10*3/uL Lymphocytes # (Manual) 18.52 H 10.30 H (0.90-5.00) X 10*3/uL Monocytes # (Manual) 18.52 H 5.15 H (0.20-1.00) X 10*3/uL Eosinophils # (Manual) 5.56 H 5.15 H (0.04-0.35) X 10*3/uL Metamyelocytes # (Man) 3.43 H (0) k/uL Myelocytes # (Manual) 5.15 H (0) k/uL Blast Cells # (Man) 66.96 H (0) k/uL NRBC/100 WBC Diff 1.3 H (0.0-0.0) /100 WBCS Immature Plt Fraction 14.4 H (1.1-6.1) % Glucose (74-99) mg/dL Calcium (8.4-10.2) mg/dL Phosphorus (2.5-4.5) mg/dL AST (17-59) U/L ALT (4-49) U/L Alkaline Phosphatase (38-126) U/L Lactate Dehydrogenase 5971 H (313-618) U/L 07/06/22 Range/Units 05:58 WBC (4.50-10.00) X 10*3/uL RBC (4.40-5.60) X 10*6/uL Hgb (13.0-17.0) g/dL Hct (39.6-50.0) % MCV (80.0-97.0) fL MCH (25.0-35.0) pg MCHC (32.0-37.0) g/dL RDW (11.5-14.5) % Plt Count (140-440) X 10*3/uL Plt Count Comment Absolute Nucleated RBC (0.00-0.00) X 10*3/uL Metamyelocytes % (0-0) % Blast Cells % (0-0) % Neutrophils # (Manual) (2.00-8.90) X 10*3/uL Lymphocytes # (Manual) (0.90-5.00) X 10*3/uL Monocytes # (Manual) (0.20-1.00) X 10*3/uL Eosinophils # (Manual) (0.04-0.35) X 10*3/uL Metamyelocytes # (Man) (0) k/uL Myelocytes # (Manual) (0) k/uL Blast Cells # (Man) (0) k/uL NRBC/100 WBC Diff (0.0-0.0) /100 WBCS Immature Plt Fraction (1.1-6.1) % Glucose 133 H (74-99) mg/dL Calcium 8.3 L (8.4-10.2) mg/dL Phosphorus 6.0 H (2.5-4.5) mg/dL AST 100 H (17-59) U/L ALT 89 H (4-49) U/L Alkaline Phosphatase 301 H (38-126) U/L Lactate Dehydrogenase (313-618) U/L Microbiology - Last 24 Hours (Table) 07/04/22 10:03 Blood Culture - Preliminary Blood No Growth after 48 hours Assessment and Plan Plan: Acute myeloid leukemia Management per hematology Started on hydroxyuria and allopurinol. Discussed with hematology, chemo started Echo ok Normocytic anemia Workup per hematology Thrombocytopenia Was given one unit of platelets on 07/05 Fever of unknown origin Resolved. Blood cultures negative so far UA and CXR negative Hyperglycemia on admission A1c normal, no DM Hypokalemia Replaced Hyperlipidemia Continue statin
--- NOTE | 2022-07-06 18:16 | P.PN ---
Subjective Progress Note Date: 07/06/22 Principal diagnosis: Blast crisis Started chemotherapy with 7+3. Tolerating well. Objective - Vital Signs Vital signs: Vital Signs Temp 97.9 F 07/06/22 11:35 Pulse 86 07/06/22 11:35 Resp 18 07/06/22 11:35 BP 145/70 07/06/22 11:35 Pulse Ox 97 07/06/22 11:35 FiO2 Intake & Output 07/05/22 07/06/22 07/06/22 18:59 06:59 18:59 Intake Total 1846 1750 960 Balance 1846 1750 960 Weight 107.5 kg Intake: Intake, IV Titration 1500 1500 Amount Sodium Chloride 0.9% 1, 1500 1500 000 ml @ 125 mls/hr IV . Q8H [facility] Rx#:[id number] Oral 250 960 Blood Product 346 Platelet Pheresis Pas 346 Psoralen Unit [id number] Other: Voiding Method Toilet Toilet Urinal Urinal # Voids 3 - Exam Gen: NAD HEENT: Conjunctival pallor. No scleral icterus. Mucosa moist. Neck: Supple Lungs: No respiratory distress Heart: Regular rate Abd: Soft, nontender MSK: appropriate strength Ecchymosis around PICC line right upper extremity. Neuro: Alert and oriented x3 Skin: No jaundice Psych: Appropriate affect - Labs CBC & Chem 7: 07/06/22 05:58 07/06/22 05:58 Labs: Abnormal Lab Results - Last 24 Hours (Table) 07/06/22 07/06/22 Range/Units 05:58 05:58 WBC 171.7 H* (3.8-10.6) k/uL RBC 2.40 L (4.30-5.90) m/uL Hgb 8.4 L (13.0-17.5) gm/dL Hct 24.5 L (39.0-53.0) % MCV 102.0 H (80.0-100.0) fL MCH 35.1 H (25.0-35.0) pg RDW 20.2 H (11.5-15.5) % Plt Count 27 L (150-450) k/uL Blast Cells % 39 H* % Neutrophils # (Manual) 77.20 H (1.3-7.7) k/uL Lymphocytes # (Manual) 10.30 H (1.0-4.8) k/uL Monocytes # (Manual) 5.15 H (0-1.0) k/uL Eosinophils # (Manual) 5.15 H (0-0.7) k/uL Metamyelocytes # (Man) 3.43 H (0) k/uL Myelocytes # (Manual) 5.15 H (0) k/uL Blast Cells # (Man) 66.96 H (0) k/uL Glucose 133 H (74-99) mg/dL Calcium 8.3 L (8.4-10.2) mg/dL Phosphorus 6.0 H (2.5-4.5) mg/dL AST 100 H (17-59) U/L ALT 89 H (4-49) U/L Alkaline Phosphatase 301 H (38-126) U/L Microbiology - Last 24 Hours (Table) 07/04/22 10:03 Blood Culture - Preliminary Blood No Growth after 48 hours Assessment and Plan Assessment: 1. Blast crisis 2. 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 High risk of TLS 5. Hyperphosphatemia Plan: Mr. Goyal is a very pleasant 61 yo gentleman who comes in for unusual SOB/[place], progressive fatigue, mouth sores, and increased bruising/mucosal bleeding, found to have severe leukocytosis (160) with significantly increased blasts (52%), anemia (10.1), and thrombocytopenia (21). Underwent BMB on 07/02/22 and peripheral smear was reviewed. We'll our rods and no signs of DIC and blood work. 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 He received day 1 of treatment on 07/05/22, tolerated well so far. Pretreatment 2-D echo obtained, EF 5560 percent, and he had PICC line placed. For his AML, continue 7+3. Continue supportive transfusion for hemoglobin less than 7 and platelets less than 10, irradiated blood products. He has high risk for tumor lysis. Received 1 dose of L attack and on allopurinol 300 mg daily. Uric acid and phosphorus slightly increased today. We'll consult nephrology. Creatinine normal. Potassium up trending although still normal. We'll need to continue to monitor very closely for tumor lysis as he is high risk for this. Discussed with patient is agreeable to the plan. All of his questions were answered.
[2022-07-06] MEDS: FAMOTIDINE 20 MG/2 ML VIAL IV SCH (18:59)
[2022-07-06] MEDS: DEXAMETHASONE SOD PHOSPHATE 10 MG/ML 1 ML VIAL IVP SCH (19:00)
[2022-07-06] MEDS: ONDANSETRON 16 MG in SODIUM CHLORIDE 0.9% 50 ML IVPB SCH (19:00)
[2022-07-06] MEDS: SODIUM CHLORIDE 0.9% IV SCH (19:16)
[2022-07-06] MEDS: IDArubicin HCL 20 MG, IDArubicin HCL 4 MG in EMPTY SYRINGE 1 SYR IV SCH ×2 (19:16)
[2022-07-06] MEDS: CYTARABINE IV SCH (19:16)
[2022-07-07] MEDS: SODIUM CHLORIDE 0.9% 1,000 ML IV SCH ×2 (01:42→09:38)
[2022-07-07] MEDS: HYDROcodone/APAP 10-325MG 1 EACH TAB PO PRN ×4 (03:58→16:01)
[2022-07-07] MEDS: SALT AND SODA MOUTHWASH 1,000 ML PO SCH ×3 (06:00→16:04)
[2022-07-07] MEDS: PANTOPRAZOLE 40 MG TABLET PO SCH (07:59)
[2022-07-07] MEDS: SENNOSIDES-DOCUSATE SODIUM 1 EACH TAB PO SCH (07:59)
[2022-07-07] MEDS: allopurinoL 300 MG TAB PO SCH (07:59)
[2022-07-07] MEDS: MAG HYDROX/AL HYDROX/SIMETH 30 ML, diphenhydrAMINE ELIXIR 75 MG, LIDOCAINE VISCOUS 2% 3... PO SCH ×6 (08:00→16:04)
[2022-07-07] MEDS: MAGNESIUM HYDROXIDE 2,400 MG/10 ML CUP PO PRN (08:07)
[2022-07-07 09:44] LABS: Uric Acid 5.3 mg/dL (3.7-8.7)
--- NOTE | 2022-07-07 10:10 | P.NPCON ---
History of Present Illness - Reason for Consult acute renal failure - History of Present Illness Reason for consultation: Concern for tumor lysis History of present illness: Patient is a 61-year-old male seen in renal consultation for concern for tumor lysis syndrome. Patient states he had blood work done outpatient and was advised to come to the hospital. He was noted to have a white blood cell count of 174,000 with 50% blast cells. White count this admission was as high as 199,000. Patient was diagnosed with blast crisis and was initiated on chemotherapy 07/05/2022 by hematology oncology. Patient denies any history of kidney disease. Denies hematuria or dysuria. No vomiting or diarrhea. No edema. Denies chest pain or shortness of breath. Denies regular use of nonsteroidals. Creatinine peaked at 1.2 this admission and was 1.02 yesterday. UA is noted to be benign. Phosphorus 5.0 today and uric acid 5.3 today. Potassium was 4.1 as of yesterday and calcium was 8.3 with albumin of 3.5 as of yesterday. He is receiving IV fluids. Denies family history of renal disease. Denies history of diabetes. Vital signs are stable. General: Awake. No acute distress. HEENT: Head exam is unremarkable. LUNGS: Breath sounds decreased. HEART: Rate and Rhythm are regular. ABDOMEN: Soft, no distention. EXTREMITITES: No edema. Past Medical History Past Medical History: Hyperlipidemia History of Any Multi-Drug Resistant Organisms: None Reported Past Surgical History: Back Surgery, Orthopedic Surgery Additional Past Surgical History / Comment(s): Neck surgery, Bilateral Rotator cuff repairs, Plantar fascitis repair, wisdom teeth, colonoscopy, cervical fusion, meniscus tear repair. Past Anesthesia/Blood Transfusion Reactions: Postoperative Nausea & Vomiting (PONV) Additional Past Anesthesia/Blood Transfusion Reaction / Comment(s): Usually takes nausea medication prior to going under anesthesia. Past Psychological History: No Psychological Hx Reported Smoking Status: Never smoker Past Alcohol Use History: Occasional Past Drug Use History: None Reported - Past Family History Father Family Medical History: Cancer Additional Family Medical History / Comment(s): Skin CA Mother Additional Family Medical History / Comment(s): Blood disorder, frequent blood transfusions Medications and Allergies Home Medications Medication Instructions Recorded Confirmed Type Acetaminophen [Tylenol] 650 mg PO Q4H PRN 06/19/17 07/01/22 History Fish Oil/Dha/Epa [Fish Oil 1,200 1 cap PO DAILY 06/19/17 07/01/22 History mg Fish Oil] Lovastatin [Mevacor] 20 mg PO DAILY 06/19/17 07/01/22 History Loratadine [Claritin] 10 mg PO DAILY PRN 07/01/22 07/01/22 History Omeprazole [PriLOSEC] 20 mg PO DAILY 07/01/22 07/01/22 History tadalafiL 5 mg PO DAILY 07/01/22 07/01/22 History Allergies Allergy/AdvReac Type Severity Reaction Status Date / Time codeine Allergy Nausea Verified 07/01/22 17:54 Physical Exam Vitals: Vital Signs Temp Pulse Resp BP Pulse Ox 07/07/22 07:55 98.3 F 83 18 157/78 97 07/07/22 04:03 98.2 F 67 18 114/65 97 07/06/22 23:55 98.3 F 80 15 126/76 96 07/06/22 20:00 91 16 07/06/22 19:43 99.3 F 91 16 156/82 96 07/06/22 15:53 97.9 F 85 16 155/78 98 07/06/22 11:35 97.9 F 86 18 145/70 97 Intake and Output 07/06/22 07/07/22 07/07/22 22:59 06:59 14:59 Intake Total 540 2395 Balance 540 2395 Intake: Intake, IV Titration 1805 Amount Cytarabine/Pf 200 mg In 255 Sodium Chloride 0.9% 500 ml 500 ml @ 21.25 mls/hr IV Q24H [facility] Rx#:[id number] Ondansetron 16 mg In 50 Sodium Chloride 0.9% 50 ml @ 232 mls/hr IVPB Q24H [facility] Rx#:[id number] Sodium Chloride 0.9% 1, 1500 000 ml @ 125 mls/hr IV . Q8H [facility] Rx#:[id number] Oral 540 590 Other: Voiding Method Toilet Urinal # Voids 3 Weight 107.139 kg Results - Lab Results Most recent lab results Calcium 8.3 mg/dL (8.4-10.2) L 07/06/22 05:58 Phosphorus 5.0 mg/dL (2.4-5.1) 07/07/22 04:54 Magnesium 1.9 mg/dL (1.6-2.3) 07/01/22 16:51 07/06/22 05:58 07/06/22 05:58 Assessment and Plan Plan: Assessment: 1. Blast crisis started on chemotherapy 07/05/2022. 2. High risk of tumor lysis syndrome. Potassium yesterday was 4.1. Uric acid today is 5.3 and phosphorus is 5.0 (phosphorus was 6.0 yesterday). Urine pH noted to be 6.5. Plan: Maintain IV hydration as tumor burden still high. Currently on normal saline at 125 mL an hour. Continue to monitor electrolytes, uric acid and renal function on daily basis. Avoid nephrotoxins. If develops metabolic acidosis, will change IV fluids to bicarbonate. Thank you for the consultation. I will continue to follow this patient with you during his hospital stay.
[2022-07-07 10:15] LABS: HGB 6.4 g/dL (13.0-17.0); MCH 30.3 pg (27.0-32.0); MCHC 29.1 g/dL (32.0-37.0); MCV 104.3 fL (80.0-97.0); Mean Platelet Volume 12.9 fL (9.5-12.2); Platelet Count 10 X 10*3/uL (140-440); RBC 2.11 X 10*6/uL (4.40-5.60); RDW 18.9 % (11.5-14.5); WBC 134.45 X 10*3/uL (4.50-10.00)
[2022-07-07 10:16] LABS: Basophils # (M) 0 X 10*3/uL (0.00-0.10); Blast Cells # (M) 32.27 k/uL (0); Eosinophils # (M) 1.34 X 10*3/uL (0.04-0.35); Immature Platelet Fraction 16.9 % (1.1-6.1); Lymphocytes # (M) 6.72 X 10*3/uL (0.90-5.00); Monocytes # (M) 8.07 X 10*3/uL (0.20-1.00); NRBC Per 100 WBC 0.5 /100 WBCS (0.0-0.0); Neutrophils # (M) 79.33 X 10*3/uL (2.00-8.90); Neutrophils % (M) 59 %; Nucleated Red Blood Cells 2 /100 WBCS; Promyelocytes # (M) 6.72 k/uL (0); Promyelocytes % 5 % (0-0)
[2022-07-07 10:18] LABS: African American GFR (CKD) 92.4 (60.0-200.0); Albumin 3.5 g/dL (3.8-4.9); Albumin/Globulin Ratio 1.21 (1.60-3.17); Anion Gap 10.9 mmol/L (10.00-18.00); BUN/Creat Ratio 26.4 Ratio (12.00-20.00); Blood Urea Nitrogen 26.4 mg/dL (9.0-27.0); Carbon Dioxide 22.1 mmol/L (20.0-27.5); Globulin 2.9 g/dL (1.6-3.3); Non-African American GFR(CKD) 79.7 (60.0-200.0); Potassium 4.7 mmol/L (3.5-5.5); Total Bilirubin 0.5 mg/dL (0.30-1.20); Total Protein 6.4 g/dL (6.2-8.2)
[2022-07-07] MEDS: ONDANSETRON 4 MG/2 ML VIAL IVP PRN (14:38)
[2022-07-07 17:16] LABS: Anisocytosis Slight; HCT 25.9 % (39.0-53.0); HGB 8.2 gm/dL (13.0-17.5); Hypochromasia Moderate; MCH 31.2 pg (25.0-35.0); MCHC 31.6 g/dL (31.0-37.0); MCV 98.8 fL (80.0-100.0); Macrocytosis Slight; Poikilocytosis Slight; RBC 2.62 m/uL (4.30-5.90); RDW 18.9 % (11.5-15.5)
--- NOTE | 2022-07-07 17:24 | CT ---
EXAMINATION TYPE: CT brain wo con DATE OF EXAM: 07/07/2022 COMPARISON: None HISTORY: confusion post chemo CT DLP: 1116 mGycm Automated exposure control for dose reduction was used. Images of the brain obtained with no contrast. There is 3.5 cm somewhat rounded area of increased attenuation consistent with acute hemorrhage in th e left anterior temporal lobe. There is adjacent white matter hypodensity in the left posterior tempo ral lobe. There is mild mass effect. Midline is shifted to millimeters to the right side. There is so me high attenuation at the left parietal convexity consistent with small subdural hemorrhage measurin g up to 3.5 mm. The posterior fossa appears intact. The calvarium is intact. Temporal bones are intac t. There is normal aeration of the mastoid sinuses. IMPRESSION: Large acute intraparenchymal left temporal lobe hemorrhage. There is also evidence of a small adjacen t left parietal acute subdural hemorrhage. This exam was discussed with the nursing staff on the floor at 5:20 PM.
[2022-07-07 17:26] LABS: Platelet Count 15 k/uL (150-450); WBC 102.1 k/uL (3.8-10.6)
--- NOTE | 2022-07-07 17:30 | XR ---
EXAMINATION TYPE: XR chest 1V portable DATE OF EXAM: 07/07/2022 COMPARISON: 07/04/2022 HISTORY: Confusion TECHNIQUE: FINDINGS: There is no heart failure nor confluent pneumonic infiltrate. Costophrenic angles are clear . There is left side central venous catheter with the tip apparently in the superior vena cava. There is a loop in the catheter at the base of the neck and probably in the left jugular vein. IMPRESSION: No active cardiopulmonary disease. Normal heart. No adverse change.
[2022-07-07 17:46] LABS: ALT 55 U/L (4-49); AST 61 U/L (17-59); African American GFR (CKD) >90 (>60 ml/min/1.73 sqM); Albumin 3.5 g/dL (3.5-5.0); Albumin/Globulin Ratio 1.1; Alkaline Phosphatase 199 U/L (38-126); Anion Gap 11 mmol/L; Blood Urea Nitrogen 31 mg/dL (9-20); Calcium 7.8 mg/dL (8.4-10.2); Carbon Dioxide 22 mmol/L (22-30); Chloride 100 mmol/L (98-107); Globulin 3.2 g/dL; Glucose 113 mg/dL (74-99); Magnesium 2.6 mg/dL (1.6-2.3); Non-African American GFR(CKD) 86 (>60 ml/min/1.73 sqM); Potassium 4.5 mmol/L (3.5-5.1); Sodium 133 mmol/L (137-145); Total Bilirubin 0.6 mg/dL (0.2-1.3); Total Protein 6.7 g/dL (6.3-8.2); Uric Acid 5.9 mg/dL (3.5-8.5)
[2022-07-07] MEDS ORDERED: DESMOPRESSIN ACETATE 40 MCG in SODIUM CHLORIDE 0.9% 50 ML IVPB STA (18:03)
[2022-07-07] MEDS ORDERED: LABETALOL SYRINGE 5 MG/ML IVP STA (18:45)
--- NOTE | 2022-07-07 18:56 | P.PN ---
Subjective Progress Note Date: 07/07/22 Floor update note I was called secondary to patient's change in mental status. Today my partner had seen the patient and noticed changes in mental status. CT brain was performed which revealed large size intraparenchymal hemorrhage. The findings were communicated to his oncologist who ordered infusion of platelets. Patient is currently getting transferred to [facility]. Patient has accepting ysician and a bed available. EMS to arrive in 10 minutes to take him. Patient is awake follows all commands. No neurological deficits on neuro exam. Patient is confused and unable to Tell me where he is but is aware of his condition and his surroundings. GCS of 14. Hemodynamics stable. SBP of 154. IV labetalol 10 mg 1 ordered. If continues to have elevated blood pressure readings might s tart the patient on Nicardipine drip. IV Decadron is ordered as well. Patient is not on any anticoagulation. Discussed with family who are present at bedside. Patient is currently full code. Nursing to contact us with repeat vitals after the blood pressure check. Objective - Vital Signs Vital signs: Vital Signs Temp 98.4 F 07/07/22 18:21 Pulse 80 07/07/22 18:21 Resp 20 07/07/22 18:21 BP 147/81 07/07/22 18:21 Pulse Ox 97 07/07/22 18:21 FiO2 Intake & Output 07/06/22 07/07/22 07/07/22 18:59 06:59 18:59 Intake Total 1500 2395 2030 Output Total 150 Balance 1500 2395 1880 Weight 107.139 kg Intake: Intake, IV Titration 1805 1752 Amount Cytarabine/Pf 200 mg In 255 252 Sodium Chloride 0.9% 500 ml 500 ml @ 21.25 mls/hr IV Q24H [facility] Rx#:[id number] Ondansetron 16 mg In 50 Sodium Chloride 0.9% 50 ml @ 232 mls/hr IVPB Q24H [facility] Rx#:[id number] Sodium Chloride 0.9% 1, 1500 1500 000 ml @ 125 mls/hr IV . Q8H [facility] Rx#:[id number] Oral 1500 590 Blood Product 278 Unit 0 Rc Pheresis Irrad As 3 278 Unit [id number] Output: Emesis 150 Other: Voiding Method Toilet Urinal # Voids 3 - Labs CBC & Chem 7: 07/07/22 17:10 07/07/22 16:45 Labs: Abnormal Lab Results - Last 24 Hours (Table) 07/05/22 07/07/22 07/07/22 Range/Units 10:25 04:54 04:54 WBC 134.45 H* (4.50-10.00) X 10*3/uL RBC 2.11 L (4.40-5.60) X 10*6/uL Hgb 6.4 L* (13.0-17.0) g/dL Hct 22.0 L (39.6-50.0) % MCV 104.3 H (80.0-97.0) fL MCHC 29.1 L (32.0-37.0) g/dL RDW 18.9 H (11.5-14.5) % Plt Count 10 L* (140-440) X 10*3/uL Plt Count Comment A MPV 12.9 H (9.5-12.2) fL Absolute Nucleated RBC 0.66 H (0.00-0.00) X 10*3/uL Promyelocytes % 5 H (0-0) % Blast Cells % 24 H* (0-0) % Neutrophils # (Manual) 79.33 H (2.00-8.90) X 10*3/uL Lymphocytes # (Manual) 6.72 H (0.90-5.00) X 10*3/uL Monocytes # (Manual) 8.07 H (0.20-1.00) X 10*3/uL Eosinophils # (Manual) 1.34 H (0.04-0.35) X 10*3/uL NRBC/100 WBC Diff 0.5 H (0.0-0.0) /100 WBCS Immature Plt Fraction 16.9 H (1.1-6.1) % Sodium 134 L (135-145) mmol/L BUN (9-20) mg/dL BUN/Creatinine Ratio 26.40 H (12.00-20.00) Ratio Glucose 144 H (70-110) mg/dL Calcium 8.0 L (8.7-10.3) mg/dL Phosphorus (2.5-4.5) mg/dL Magnesium (1.6-2.3) mg/dL AST 74 H (14-35) U/L ALT 68 H (10-49) U/L Alkaline Phosphatase 232 H (41-126) U/L Albumin 3.5 L (3.8-4.9) g/dL Albumin/Globulin Ratio 1.21 L (1.60-3.17) g/dL Crossmatch See Detail 07/07/22 07/07/22 Range/Units 16:45 17:10 WBC 102.1 H* (4.50-10.00) X 10*3/uL RBC 2.62 L (4.40-5.60) X 10*6/uL Hgb 8.2 L (13.0-17.0) g/dL Hct 25.9 L (39.6-50.0) % MCV (80.0-97.0) fL MCHC (32.0-37.0) g/dL RDW 18.9 H (11.5-14.5) % Plt Count 15 L* (140-440) X 10*3/uL Plt Count Comment MPV (9.5-12.2) fL Absolute Nucleated RBC (0.00-0.00) X 10*3/uL Promyelocytes % (0-0) % Blast Cells % (0-0) % Neutrophils # (Manual) (2.00-8.90) X 10*3/uL Lymphocytes # (Manual) (0.90-5.00) X 10*3/uL Monocytes # (Manual) (0.20-1.00) X 10*3/uL Eosinophils # (Manual) (0.04-0.35) X 10*3/uL NRBC/100 WBC Diff (0.0-0.0) /100 WBCS Immature Plt Fraction (1.1-6.1) % Sodium 133 L (135-145) mmol/L BUN 31 H (9-20) mg/dL BUN/Creatinine Ratio (12.00-20.00) Ratio Glucose 113 H (70-110) mg/dL Calcium 7.8 L (8.7-10.3) mg/dL Phosphorus 5.0 H (2.5-4.5) mg/dL Magnesium 2.6 H (1.6-2.3) mg/dL AST 61 H (14-35) U/L ALT 55 H (10-49) U/L Alkaline Phosphatase 199 H (41-126) U/L Albumin (3.8-4.9) g/dL Albumin/Globulin Ratio (1.60-3.17) g/dL Crossmatch Microbiology - Last 24 Hours (Table) 07/04/22 10:03 Blood Culture - Preliminary Blood No Growth after 72 hours
[2022-07-07 19:08] VITALS: BP 136/78; PULSE 77; RESP 20; TEMP 98.6
[2022-07-07 19:52] LABS: Band Neutrophils % 3 %; Eosinophils # (M) 1.02 k/uL (0-0.7); Lymphocytes # (M) 6.13 k/uL (1.0-4.8); Monocytes # (M) 6.13 k/uL (0-1.0); Neutrophils % (M) 66 %
[2022-07-07 19:53] LABS: Blast Cells # (M) 20.42 k/uL (0); Nucleated Red Blood Cells 0 /100 WBC (0-0); Total Cells Counted 200
[2022-07-07 19:54] LABS: Anisocytosis (M) Present; Polychromasia Present; Stomatocytes Present
== END 2022-07-07 19:25 | disposition short-term general hospital (02) | DRG 834 ==
LOC: EC 16:25 → 3SCARD 17:23 → 5NMEDONC 07-02 11:41
PROVIDERS: ADMIT Internal Medicine; ATTEND Internal Medicine
PROC: 07DR3ZX Extraction of Iliac Bone Marrow, Percutaneous Approach, Diagnostic (ICD-10-PCS; 2022-07-02)
PROC: 02HV33Z Insertion of Infusion Device into Superior Vena Cava, Percutaneous Approach (ICD-10-PCS; principal; 2022-07-02 08:45)
PROC: 02HV33Z Insertion of Infusion Device into Superior Vena Cava, Percutaneous Approach (ICD-10-PCS; 2022-07-05)
PROC: 02PY33Z Removal of Infusion Device from Great Vessel, Percutaneous Approach (ICD-10-PCS; 2022-07-05)
PROC: 3E04305 Introduction of Other Antineoplastic into Central Vein, Percutaneous Approach (ICD-10-PCS; 2022-07-05)
PROC: 30233R1 Transfusion of Nonautologous Platelets into Peripheral Vein, Percutaneous Approach (ICD-10-PCS; 2022-07-05)
DX: C95.00 Acute leukemia of unspecified cell type not having achieved remission (principal); E88.3 Tumor lysis syndrome; I61.9 Nontraumatic intracerebral hemorrhage, unspecified; E78.5 Hyperlipidemia, unspecified; D69.6 Thrombocytopenia, unspecified; Z20.822 Contact with and (suspected) exposure to COVID-19; E83.39 Other disorders of phosphorus metabolism; D64.9 Anemia, unspecified; R73.9 Hyperglycemia, unspecified; E87.6 Hypokalemia; R50.9 Fever, unspecified; Z79.899 Other long term (current) drug therapy; Z88.5 Allergy status to narcotic agent
CPT/HCPCS: 36415; 36573; 38222; 70450; 71045; 71046; 80048; 80053; 81001; 81003; 83036; 83605; 83615; 83735; 84100; 84484; 84550; 85025; 85045; 85379; 85384; 85610; 85730; 86850; 86900; 86901; 86920; 87040; 87635; 88271; 88275; 93005; 93306; 96361; 96365; 99291

== ENCOUNTER 2023-10-17 19:21 | Emergency (ER) | payer MEDICARE, BC ==
[2023-10-17] MEDS ORDERED: TRANEXAMIC ACID 2,000 MG in SODIUM CHLORIDE 0.9% 100 ML IRRIGATION ONE (20:06)
[2023-10-17] MEDS ORDERED: TRANEXAMIC ACID 1,000 MG/10 ML VIAL IRRIGATION STA (20:08)
[2023-10-17 21:17] LABS: ALT 27 U/L (4-49); AST 29 U/L (17-59); African American GFR (CKD) >90 (>60 ml/min/1.73 sqM); Alkaline Phosphatase 120 U/L (38-126); Anion Gap 12 mmol/L; Blood Urea Nitrogen 23 mg/dL (9-20); Carbon Dioxide 23 mmol/L (22-30); Chloride 103 mmol/L (98-107); Glucose 127 mg/dL (74-99); Non-African American GFR(CKD) >90 (>60 ml/min/1.73 sqM); Potassium 4.3 mmol/L (3.5-5.1); Sodium 138 mmol/L (137-145); Total Bilirubin 0.3 mg/dL (0.2-1.3); Total Protein 6.3 g/dL (6.3-8.2)
[2023-10-17 21:18] LABS: Partial Thromboplastin Time 23.7 sec (22.0-30.0); Prothrombin Time 10.9 sec (10.0-12.5)
[2023-10-17 21:25] LABS: Anisocytosis Slight; HCT 26.4 % (39.0-53.0); HGB 9.4 gm/dL (13.0-17.5); MCH 36.5 pg (25.0-35.0); MCHC 35.8 g/dL (31.0-37.0); MCV 102.1 fL (80.0-100.0); Macrocytosis Slight; Mean Platelet Volume 8.2; RBC 2.58 m/uL (4.30-5.90); RDW 16.4 % (11.5-15.5); WBC 19.5 k/uL (3.8-10.6)
[2023-10-17 21:30] LABS: Platelet Count 21 k/uL (150-450)
[2023-10-17 22:03] LABS: Band Neutrophils % 4 %; Eosinophils # (M) 0.39 k/uL (0-0.7); Neutrophils % (M) 73 %; Nucleated Red Blood Cells 0 /100 WBC (0-0)
--- NOTE | 2023-10-17 22:31 | ED ---
General Adult HPI - General Chief complaint: ENT Stated complaint: Bloody Nose Time Seen by Provider: 10/17/23 19:56 Source: patient, RN notes reviewed Mode of arrival: ambulatory Limitations: no limitations - History of Present Illness Initial comments: 62-year-old male with past medical history significant for AML presents emergency Department with chief complaint of epistaxis. Patient reports that he has had epistaxis lasting a half. It is a slow drip. He denies any injury or trauma. He did have his platelets drawn earlier today and the, nose outpatient lab which revealed 22. He denies any dizziness lightheadedness shortness of breath and fatigue. - Related Data Home Medications Medication Instructions Recorded Confirmed Calcium Acetate [PhosLo] 667 mg PO TID 12/27/22 10/15/23 Posaconazole [Noxafil] 100 mg PO TID 12/27/22 10/15/23 Acyclovir [Zovirax] 400 mg PO DIRECTED 03/17/23 10/15/23 Cefpodoxime Proxetil [Vantin] 200 mg PO DIRECTED 03/17/23 10/15/23 Multivitamin [Multivitamins Adult 1 tab PO DAILY 03/17/23 10/15/23 Gummies] Prednisolone Acetate/Pf 1 drop BOTH EYES DIRECTED 03/17/23 10/15/23 [Prednisolone Acet 1% Eye Drop] allopurinoL 300 mg PO DAILY 03/17/23 10/15/23 traMADol HCl [Ultram] 50 mg PO Q6HR PRN 03/17/23 10/15/23 Allergies Allergy/AdvReac Type Severity Reaction Status Date / Time codeine Allergy Nausea Verified 10/18/23 09:38 levofloxacin [From Levaquin] Allergy Unknown Verified 10/18/23 09:38 chloraprep AdvReac Rash/Hives Uncoded 10/18/23 09:39 Review of Systems ROS Statement: Those systems with pertinent positive or pertinent negative responses have been documented in the HPI. ROS Other: All systems not noted in ROS Statement are negative. Past Medical History Past Medical History: Hyperlipidemia Additional Past Medical History / Comment(s): leukemia History of Any Multi-Drug Resistant Organisms: None Reported Past Surgical History: Back Surgery, Orthopedic Surgery Additional Past Surgical History / Comment(s): Neck surgery, Bilateral Rotator cuff repairs, Plantar fascitis repair, wisdom teeth, colonoscopy, cervical fusion, meniscus tear repair. Past Anesthesia/Blood Transfusion Reactions: Postoperative Nausea & Vomiting (PONV) Additional Past Anesthesia/Blood Transfusion Reaction / Comment(s): Usually takes nausea medication prior to going under anesthesia. Past Psychological History: No Psychological Hx Reported Smoking Status: Never smoker Past Alcohol Use History: None Reported Past Drug Use History: None Reported - Past Family History Father Family Medical History: Cancer Additional Family Medical History / Comment(s): Skin CA Mother Additional Family Medical History / Comment(s): Blood disorder, frequent blood transfusions General Exam - General Exam Comments Initial Comments: General: Alert, in no acute distress Head: atraumatic normocephalic. Eyes PERRL, EOMI intact, mucous membranes moist, right near with trace amount of blood. Respiratory: Lungs clear to auscultation bilaterally Cardiovascular: Heart rate regular rate and rhythm Abdominal: Soft without guarding or rebound Extremities: Normal inspection with full range of motion and normal capillary refill Neuroogic: alert and oriented 3, CN II-XII intact, able to ambulate with steady gait Skin: warm dry and intact with normal color Limitations: no limitations Course Vital Signs 10/17/23 10/17/23 19:33 22:50 Temperature 97.8 F 97.1 F L Pulse Rate 109 H 96 Respiratory 18 19 Rate Blood Pressure 147/76 117/76 O2 Sat by Pulse 97 98 Oximetry - Reevaluation(s) Reevaluation #1: 10/17/23 22:12 Case was discussed with Dr. Simmons who recommends giving patient unit of platelets and reevaluating epistaxis. Advises if epistaxis does not stop, recommends patient to be admitted 10/17/23 22:23 Patient re-evaluated and updated on labratory results.. Patient aware need for platelets. Patient agreeable with plan of care. Patient verbalizes that he would like to be discharged home after infusion. Patient is not nasal clamp on at this time. She reports that it is causing him pain. Educated on the importance of nasal clamp to promote clotting to right nare. 10/17/23 23:10 Notified of hemolysis a type and screen. Patient educated on the importance of type and screen in order to receive platelets. Patient's right ear continues to have bleeding. Patient still refusing to have nose packed OR apply nasal clamp. Reevaluation #2: 10/18/23 00:50 Pt re-evaluated. Lab at bedside to attempt to draw a type and screen sample. Patient is refusing Type/screen redraw. Patient agitated and yelling at staff. Patient demanding to have infusion. Patient was educated on need for type and screen in order for blood bank to release plasma. Patient continues to refuse type/screen draw. Patient verbalizes that he has an appointment at 09:00 tomorrow for a platelet infusion. He is verbalizing that he would like to leave AGAINST MEDICAL ADVICE. Patient was offered admission and educated on infusion protocols. Patient continues to be agitated and requests to leave against medical advice. Right nare continues to bleed. Medical Decision Making - Medical Decision Making Was pt. sent in by a medical professional or institution (, PA, SOURCING MANAGER, urgent care, hospital, or care home...) When possible be specific @ -[No] Did you speak to anyone other than the patient for history (EMS, parent, family, police, friend...)? What history was obtained from this source @ -[No] Did you review nursing and triage notes (agree or disagree)? Why? @ -[I reviewed and agree with nursing and triage notes] Were old charts reviewed (outside hosp., previous admission, EMS record, old EKG, old radiological studies, urgent care reports/EKG's, care home records)? Report findings @ -[No old charts were reviewed] Differential Diagnosis (chest pain, altered mental status, abdominal pain women, abdominal pain men, vaginal bleeding, weakness, fever, dyspnea, syncope, headache, dizziness, GI bleed, back pain, seizure, CVA, palpatations, mental health, musculoskeletal)? @ -[not applicable] EKG interpreted by me (3pts min.). @ -[As above] X-rays interpreted by me (1pt min.). @ -[None done] CT interpreted by me (1pt min.). @ -[None done] U/S interpreted by me (1pt. min.). @ -[None done] What testing was considered but not performed or refused? (CT, X-rays, U/S, labs)? Why? @ -[None] What meds were considered but not given or refused? Why? @ -[None] Did you discuss the management of the patient with other professionals (professionals i.e. , PA, SOURCING MANAGER, lab, RT, psych nurse, social worker delinquency prevention, gunsmith apprentice, teacher, commanding officer traffic division, therapeutic case manager)? Give summary @ -Consult Dr. Bolaños, oncologist who recommends administering platelets to the patient and reevaluating or epistaxis. Was smoking cessation discussed for >3mins.? @ -[No] Was critical care preformed (if so, how long)? @ -[No] Were there social determinants of health that impacted care today? How? (Homele ssness, low income, unemployed, alcoholism, drug addiction, transportation, low edu. Level, literacy, decrease access to med. care, long-term, rehab)? @ -[No] Was there de-escalation of care discussed even if they declined (Discuss DNR or withdrawal of care, Hospice)? DNR status @ -[No] What co-morbidities impacted this encounter? (DM, HTN, Smoking, COPD, CAD, Cancer, CVA, ARF, Chemo, Hep., AIDS, mental health diagnosis, sleep apnea, morbid obesity)? @ -[None] Was patient admitted / discharged? Hospital course, mention meds given and route, prescriptions, significant lab abnormalities, going to OR and other pertinent info. @ - Left AGAINST MEDICAL ADVICE. This is a 2-year-old male with a past medical history significant for AML who presents the emergency department with epistaxis. Patient had a thorough history and physical exam performed. Heart rate regular rate and auscultation bilaterally abdomen soft and nontender. Right near with trace amount of bleeding. Does not appear anterior. Patient laboratory studies reveal platelets to be 21. At this time type and screen was ordered and drawn however initial sample was hemolyzed. Lab in the department for a redraw. Patient refusing me draw for type and screen. Patient requesting to be given platelets without type and screen. Provider educated patient on the importance of platelet and blood administration protocols. Patient agitated and yelling at Provider. Patient requesting leave AGAINST MEDICAL ADVICE and without platelets. Patient was offered admission however he refused. Discussed with ANUP Mejia who agrees with plan of care Undiagnosed new problem with uncertain prognosis? @ -[No] Drug Therapy requiring intensive monitoring for toxicity (Heparin, Nitro, Insulin, Cardizem)? @ -[No] Were any procedures done? @ -[No] Diagnosis/symptom? @ -Epistaxis - Thrombocytopenia - Hx of AML Acute, or Cic, or Acute on Chronic? @ -[default] Uncomplicated (without systemic symptoms) or Complicated (systemic symptoms)? @ -[default] Side effects of treatment? @ -[No] Exacerbation, Progression, or Severe Exacerbation? @ -[No] Poses a threat to life or bodily function? How? (Chest pain, USA, [place], pneumonia, PE, COPD, DKA, ARF, appy, cholecystitis, CVA, Diverticulitis, Homicidal, Suicidal, threat to staff... and all critical care pts) @ -[No] - Lab Data Result diagrams: 10/17/23 20:15 10/17/23 20:15 Lab Results 10/17/23 10/17/23 10/17/23 Range/Units 20:15 20:15 20:15 WBC 19.5 H (3.8-10.6) k/uL RBC 2.58 L (4.30-5.90) m/uL Hgb 9.4 L (13.0-17.5) gm/dL Hct 26.4 L (39.0-53.0) % MCV 102.1 H (80.0-100.0) fL MCH 36.5 H (25.0-35.0) pg MCHC 35.8 (31.0-37.0) g/dL RDW 16.4 H (11.5-15.5) % Plt Count 21 L (150-450) k/uL MPV 8.2 Neutrophils % (Manual) 73 % Band Neuts % (Manual) 4 % Lymphocytes % (Manual) 16 % Eosinophils % (Manual) 2 % Blast Cells % 5 H* % Neutrophils # (Manual) 15.00 H (1.3-7.7) k/uL Lymphocytes # (Manual) 3.12 (1.0-4.8) k/uL Eosinophils # (Manual) 0.39 (0-0.7) k/uL Blast Cells # (Man) 0.98 H (0) k/uL Nucleated RBCs 0 (0-0) /100 WBC Manual Slide Review Performed Anisocytosis Slight Macrocytosis Slight PT 10.9 (10.0-12.5) sec INR 1.0 (<1.2) APTT 23.7 (22.0-30.0) sec Sodium 138 (137-145) mmol/L Potassium 4.3 (3.5-5.1) mmol/L Chloride 103 (98-107) mmol/L Carbon Dioxide 23 (22-30) mmol/L Anion Gap 12 mmol/L BUN 23 H (9-20) mg/dL Creatinine 0.80 (0.66-1.25) mg/dL Est GFR (CKD-EPI)AfAm >90 (>60 ml/min/1.73 sqM) Est GFR (CKD-EPI)NonAf >90 (>60 ml/min/1.73 sqM) Glucose 127 H (74-99) mg/dL Calcium 9.0 (8.4-10.2) mg/dL Total Bilirubin 0.3 (0.2-1.3) mg/dL AST 29 (17-59) U/L ALT 27 (4-49) U/L Alkaline Phosphatase 120 (38-126) U/L Total Protein 6.3 (6.3-8.2) g/dL Albumin 4.0 (3.5-5.0) g/dL Disposition Clinical Impression: Thrombocytopenia, Epistaxis Disposition: LEFT AGAINST MEDICAL ADVICE Condition: Undetermined Is patient prescribed a controlled substance at d/c from ED?: No Referrals: None,Stated [Primary Care Provider] - 1-2 days Time of Disposition: 04:24
[2023-10-17 22:52] LABS: Lymphocytes # (M) 3.12 k/uL (1.0-4.8)
[2023-10-17 23:14] VITALS: BP 117/76; PULSE 96; RESP 19; TEMP 97.1
[2023-10-17 23:17] LABS: Blast Cells # (M) 0.98 k/uL (0); Total Cells Counted 200
== END 2023-10-18 00:49 | disposition left against medical advice (07) ==
LOC: EC 19:21
DX: D69.6 Thrombocytopenia, unspecified (principal); R04.0 Epistaxis; Z88.5 Allergy status to narcotic agent; Z88.8 Allergy status to other drugs, medicaments and biological substances; Z53.29 Procedure and treatment not carried out because of patient's decision for other reasons
CPT/HCPCS: 36415; 80053; 85025; 85610; 85730; 86850; 86900; 86901; 99283

== ENCOUNTER 2023-11-09 15:05 | Emergency (ER) | payer MEDICARE, BC ==
[2023-11-09 15:28] VITALS: BP 138/80; PULSE 86; RESP 16; TEMP 98.8
--- NOTE | 2023-11-09 15:34 | ED ---
General Adult HPI - General Chief complaint: Recheck/Abnormal Lab/Rx Stated complaint: Low platelets, Leukemia patient Time Seen by Provider: 11/09/23 15:11 Source: patient Mode of arrival: ambulatory Limitations: no limitations - History of Present Illness Initial comments: Dictation was produced using [employer] dictation software. please excuse any grammatical, word or spelling errors. Chief Complaint: 63-year-old male presents emergency Department requesting platelet transfusion History of Present Illness: 63-year-old male past medical history of acute myelogenous leukemia presents to the ER for platelet transfusion. Patient states that he's been getting episodes of epistaxis. Typically for him it's an indication that as well as her low and he needs a transfusion. Patient otherwise has no other complaints. States that he wants enough we have platelets available for transfusion here if not that he wants to be discharged to go to another hospital that he knows has platelets. The ROS documented in this emergency department record has been reviewed and confirmed by me. Those systems with pertinent positive or negative responses have been documented in the HPI. All other systems are other negative and/or noncontributory. - Related Data Home Medications Medication Instructions Recorded Confirmed Calcium Acetate [PhosLo] 667 mg PO TID 12/27/22 11/07/23 Posaconazole [Noxafil] 100 mg PO TID 12/27/22 11/07/23 Acyclovir [Zovirax] 400 mg PO DIRECTED 03/17/23 11/07/23 Cefpodoxime Proxetil [Vantin] 200 mg PO DIRECTED 03/17/23 11/07/23 Multivitamin [Multivitamins Adult 1 tab PO DAILY 03/17/23 11/07/23 Gummies] Prednisolone Acetate/Pf 1 drop BOTH EYES DIRECTED 03/17/23 11/07/23 [Prednisolone Acet 1% Eye Drop] allopurinoL 300 mg PO DAILY 03/17/23 11/07/23 traMADol HCl [Ultram] 50 mg PO Q6HR PRN 03/17/23 11/07/23 Allergies Allergy/AdvReac Type Severity Reaction Status Date / Time codeine Allergy Nausea Verified 11/07/23 07:20 levofloxacin [From Levaquin] Allergy Unknown Verified 11/07/23 07:20 chloraprep AdvReac Rash/Hives Uncoded 11/07/23 07:20 Review of Systems ROS Statement: Those systems with pertinent positive or pertinent negative responses have been documented in the HPI. ROS Other: All systems not noted in ROS Statement are negative. Past Medical History Past Medical History: Cancer, Hyperlipidemia Additional Past Medical History / Comment(s): leukemia, stem cell transplant History of Any Multi-Drug Resistant Organisms: None Reported Past Surgical History: Back Surgery, Orthopedic Surgery Additional Past Surgical History / Comment(s): Neck surgery, Bilateral Rotator cuff repairs, Plantar fascitis repair, wisdom teeth, colonoscopy, cervical fusion, meniscus tear repair. Past Anesthesia/Blood Transfusion Reactions: Postoperative Nausea & Vomiting (PONV) Additional Past Anesthesia/Blood Transfusion Reaction / Comment(s): Usually takes nausea medication prior to going under anesthesia. Past Psychological History: No Psychological Hx Reported Smoking Status: Never smoker - Past Family History Father Family Medical History: Cancer Additional Family Medical History / Comment(s): Skin CA Mother Additional Family Medical History / Comment(s): Blood disorder, frequent blood transfusions General Exam - General Exam Comments Initial Comments: PHYSICAL EXAM: General Impression: Alert and oriented x3, not in acute distress HEENT: Normocephalic atraumatic, extra-ocular movements intact, pupils equal and reactive to light bilaterally, mucous membranes moist. Cardiovascular: Heart regular rate and rhythm Chest: Able to complete full sentences, no retractions, no tachypnea Abdomen: abdomen soft, non-tender, non-distended, no organomegaly Musculoskeletal: Pulses present and equal in all extremities, no peripheral edema Motor: no focal deficits noted Neurological: CN II-XII grossly intact, no focal motor or sensory deficits noted Skin: Intact with no visualized rashes Psych: Normal affect and mood Limitations: no limitations Course Vital Signs 11/09/23 15:08 Temperature 98.8 F Pulse Rate 86 Respiratory 16 Rate Blood Pressure 138/80 O2 Sat by Pulse 98 Oximetry Medical Decision Making - Medical Decision Making Was pt. sent in by a medical professional or institution (, PA, INVERTED BLOCK OPERATOR, urgent care, hospital, or half-way...) When possible be specific @ -No Did you speak to anyone other than the patient for history (EMS, parent, family, police, friend...)? What history was obtained from this source @ -No Did you review nursing and triage notes (agree or disagree)? Why? @ -I reviewed and agree with nursing and triage notes Were old charts reviewed (outside hosp., previous admission, EMS record, old EKG, old radiological studies, urgent care reports/EKG's, half-way records)? Report findings @ -No old charts were reviewed Differential Diagnosis (chest pain, altered mental status, abdominal pain women, abdominal pain men, vaginal bleeding, musculoskeletal, weakness, fever, dyspnea, syncope, headache, dizziness, GI bleed, back pain, seizure, CVA, palpatations, mental health)? @ -not applicable EKG interpreted by me (3pts min.). @ -None done X-rays interpreted by me (1pt min.). @ -None done CT interpreted by me (1pt min.). @ -None done U/S interpreted by me (1pt. min.). @ -None done What testing was considered but not performed or refused? (CT, X-rays, U/S, labs)? Why? @ -None What meds were considered but not given or refused? Why? @ -None Did you discuss the management of the patient with other professionals (professionals i.e. , PA, INVERTED BLOCK OPERATOR, lab, RT, psych nurse, social media sr strategy manager, chrome plater, teacher, sustainability officer, case operator)? Give summary @ -No Was smoking cessation discussed for >3mins.? @ -No Was critical care preformed (if so, how long)? @ -No Were there social determinants of health that impacted care today? How? (Homelessness, low income, unemployed, alcoholism, drug addiction, transportation, low edu. Level, literacy, decrease access to med. care, [facility] [facility], rehab)? @ -No Was there de-escalation of care discussed even if they declined (Discuss DNR or withdrawal of care, Hospice)? DNR status @ -No What co-morbidities impacted this encounter? (DM, HTN, Smoking, COPD, CAD, Cancer, CVA, ARF, Chemo, Hep., AIDS, mental health diagnosis, sleep apnea, morbid obesity)? @ -None Was patient admitted / discharged? Hospital course, mention meds given and route, prescriptions, significant lab abnormalities, going to OR and other pertinent info. @ -63-year-old male presents emergency department requesting blood transfusion. States that he needs one because he's been getting episodes of epistaxis. Patient otherwise has no complaints at the bedside. No active bleeding. Vital signs stable. Physical examination is unremarkable. Blood bank was called and we currently do not have any available platelets for transfusion. Patient was made aware of this. He requested discharge so that he go down to the city to be further evaluated. Undiagnosed new problem with uncertain prognosis? @ -No Drug Therapy requiring intensive monitoring for toxicity (Heparin, Nitro, Insulin, Cardizem)? @ -No Were any procedures done? @ -No Diagnosis/symptom? Acute, or Chronic, or Acute on Chronic? Uncomplicated (without systemic symptoms) or Complicated (systemic symptoms)? @ -Epistaxis Side effects of treatment? @ -No Exacerbation, Progression, or Severe Exacerbation? @ -No Poses a threat to life or bodily function? How? (Chest pain, USA, [place], pneumonia, PE, COPD, DKA, ARF, appy, cholecystitis, CVA, Diverticulitis, Homicidal, Suicidal, threat to staff... and all critical care pts) @ -No Disposition Clinical Impression: Epistaxis Disposition: HOME SELF-CARE Condition: Good Is patient prescribed a controlled substance at d/c from ED?: No Referrals: None,Stated [Primary Care Provider] - 1-2 days Time of Disposition: 15:34
== END 2023-11-09 15:40 | disposition home or self-care (01) ==
LOC: EC 15:05
DX: R04.0 Epistaxis (principal); Z88.1 Allergy status to other antibiotic agents; Z88.5 Allergy status to narcotic agent; Z88.8 Allergy status to other drugs, medicaments and biological substances
CPT/HCPCS: 99283

== ENCOUNTER 2024-01-07 09:09 | Emergency (ER) | payer MEDICARE, BC ==
[2024-01-07 09:22] VITALS: RESP 18
--- NOTE | 2024-01-07 10:01 | ED ---
ENT HPI - General Source: patient, RN notes reviewed, old records reviewed Mode of arrival: ambulatory Limitations: no limitations - History of Present Illness MD complaint: epistaxis (leukemia) -: days(s) Location: nose (bilateral, with right side worse bleeding than left) Severity: mild Context-Epistaxis: history of similar (previous history of low platelet count correlates to epistaxis) <Maliha Garcia - Last Filed: 01/09/24 06:33> <Flor Partida - Last Filed: 01/09/24 22:40> - General Chief complaint: ENT Stated complaint: CA pt-nose bleed Time Seen by Provider: 01/07/24 09:40 - History of Present Illness Initial comments: Patient is a 63-year-old male with a history of AML terminal leukemia, who is on daily chemotherapy- hydroxyurea, who presents to the ED with complaints of nosebleeds and for recommendation of platelet transfusion. Patient states that he has been having intermittent bilateral nosebleeds over the past 4 days. Patient goes to [facility] to have blood work check 3 times a week to monitor CBC and platelets. Patient's CBC this morning revealed a decreased platelet count of 13.1. Patient was informed to come to the ED for platelet transfusion. Patient's oncologist request that platelet count to be above 25. Patient denies any dizziness, headaches, or syncope. Patient denies cold and cold and flu-like symptoms such as runny nose, cough, congestion, headaches. Patient does state he woke up last night in a sweat, but has not checked his temperature. (Maliha Garcia) - Related Data Home Medications Medication Instructions Recorded Confirmed Posaconazole [Noxafil] 300 mg PO DAILY 12/27/22 01/09/24 Acyclovir [Zovirax] 400 mg PO BID 03/17/23 01/09/24 traMADol HCl [Ultram] 50 mg PO Q6H PRN 03/17/23 01/09/24 Hydroxyurea [Hydrea] 1,000 mg PO DAILY 11/19/23 01/09/24 Acetaminophen Tab [Tylenol] 325 mg PO Q4H PRN 12/15/23 01/09/24 Hydroxyurea [Hydrea] 1,500 mg PO HS 12/15/23 01/09/24 Prochlorperazine Maleate 10 mg PO Q6H PRN 12/15/23 01/09/24 oxyCODONE HCL [OxyIR] 5 mg PO Q6H PRN 12/15/23 01/09/24 ursodioL [Ursodiol] 300 mg PO BID 12/15/23 01/09/24 Previous Rx's Medication Instructions Recorded Oseltamivir [Tamiflu] 75 mg PO Q12HR #10 cap 01/07/24 Allergies Allergy/AdvReac Type Severity Reaction Status Date / Time codeine Allergy Nausea Verified 01/09/24 12:59 levofloxacin [From Levaquin] Allergy Unknown Verified 01/09/24 12:59 chloraprep Allergy Rash/Hives Uncoded 01/09/24 12:59 Review of Systems ROS Other: All systems not noted in ROS Statement are negative. Constitutional: Denies: fever, chills Eyes: Reports: as per HPI ENT: Reports: epistaxis Respiratory: Reports: as per HPI Cardiovascular: Reports: as per HPI Endocrine: Reports: as per HPI Gastrointestinal: Reports: as per HPI Genitourinary: Reports: as per HPI Musculoskeletal: Reports: as per HPI Skin: Reports: as per HPI Neurological: Reports: as per HPI Psychiatric: Reports: as per HPI Hematological/Lymphatic: Reports: easy bleeding <Maliha Garcia - Last Filed: 01/09/24 06:33> ROS Other: All systems not noted in ROS Statement are negative. <Flor Partida - Last Filed: 01/09/24 22:40> ROS Statement: Those systems with pertinent positive or pertinent negative responses have been documented in the HPI. Past Medical History Past Medical History: Cancer, Hyperlipidemia Additional Past Medical History / Comment(s): leukemia, stem cell transplant History of Any Multi-Drug Resistant Organisms: None Reported Past Surgical History: Back Surgery, Orthopedic Surgery Additional Past Surgical History / Comment(s): Neck surgery, Bilateral Rotator cuff repairs, Plantar fascitis repair, wisdom teeth, colonoscopy, cervical fusion, meniscus tear repair. Past Anesthesia/Blood Transfusion Reactions: Postoperative Nausea & Vomiting (PONV) Additional Past Anesthesia/Blood Transfusion Reaction / Comment(s): Usually takes nausea medication prior to going under anesthesia. Past Psychological History: No Psychological Hx Reported Smoking Status: Never smoker - Past Family History Father Family Medical History: Cancer Additional Family Medical History / Comment(s): Skin CA Mother Additional Family Medical History / Comment(s): Blood disorder, frequent blood transfusions <YvanmadelinMaliha gonsales - Last Filed: 01/09/24 06:33> General Exam Limitations: no limitations General appearance: alert, in no apparent distress Head exam: Present: atraumatic, normocephalic, normal inspection Eye exam: Present: normal appearance, PERRL, EOMI. Absent: scleral icterus, conjunctival injection, periorbital swelling ENT exam: Present: other (bilateral epistaxis ) Neck exam: Present: normal inspection. Absent: tenderness, meningismus, lymphadenopathy Respiratory exam: Present: normal lung sounds bilaterally. Absent: respiratory distress, wheezes, rales, rhonchi, stridor Cardiovascular Exam: Present: regular rate, normal rhythm, tachycardia GI/Abdominal exam: Present: soft, normal bowel sounds. Absent: distended, tenderness, guarding, rebound, rigid Extremities exam: Present: normal inspection, full ROM. Absent: tenderness, normal capillary refill, pedal edema, joint swelling, calf tenderness Back exam: Present: normal inspection Neurological exam: Present: alert, oriented X3. Absent: CN II-XII intact Psychiatric exam: Present: normal affect, normal mood Skin exam: Present: warm, dry, intact, normal color. Absent: rash <JulianaMaliha gonsales - Last Filed: 01/09/24 06:33> Course - Reevaluation(s) Time: 12:40 <Maliha Garcia - Last Filed: 01/09/24 06:33> Vital Signs 01/07/24 01/07/24 01/07/24 09:19 11:13 12:35 Temperature 98.9 F 101.1 F H 101.6 F H Pulse Rate 114 H 101 H 100 Respiratory 18 18 18 Rate Blood Pressure 109/69 120/74 112/67 O2 Sat by Pulse 98 98 96 Oximetry 01/07/24 01/07/24 01/07/24 13:31 13:41 14:14 Temperature 100 F H 100 F H 99 F Pulse Rate 95 101 H 95 Respiratory 18 18 18 Rate Blood Pressure 110/68 129/77 120/66 O2 Sat by Pulse Oximetry - Reevaluation(s) Reevaluation #1: Patient still found to have an elevated temperature of 101 at 12:40 after first dose of Tylenol at 11:20. Patient given another dose of 500mg PO tylenol, and will recheck temperature. 01/07/24 12:50 (Maliha Garcia) Reevaluation #2: Per blood bank there is only 1 pack of compatable platelets for transfusion with another pack not being available until 7 PM this evening. Patient will come back tomorrow for second transfusion. 01/07/24 14:23 (Maliha Garcia) Medical Decision Making - Lab Data Result diagrams: 01/07/24 11:57 01/07/24 11:57 <Maliha Garcia - Last Filed: 01/09/24 06:33> - Lab Data Result diagrams: 01/07/24 11:57 01/07/24 11:57 <Flor Partida - Last Filed: 01/09/24 22:40> - Medical Decision Making Was pt. sent in by a medical professional or institution (, PA, CHIEF CUSTOMER OFFICER, urgent care, hospital, or residential...) When possible be specific @ -Yes. Patient was sent in by [facility] due to a CBC this morning revealing thrombocytopenia of 13.1 and recurrent intermittent nosebleeds. Did you speak to anyone other than the patient for history (EMS, parent, family, police, friend...)? What history was obtained from this source @ -No Did you review nursing and triage notes (agree or disagree)? Why? @ -I reviewed and agree with nursing and triage notes Were old charts reviewed (outside hosp., previous admission, EMS record, old EKG, old radiological studies, urgent care reports/EKG's, residential records)? Report findings @ -Yes. Previous lab results revealed consistently low platelet count secondary to leukemia. Differential Diagnosis (chest pain, altered mental status, abdominal pain women, abdominal pain men, vaginal bleeding, weakness, fever, dyspnea, syncope, headache, dizziness, GI bleed, back pain, seizure, CVA, palpatations, mental health, musculoskeletal)? @ -Differential diagnosis epistaxis, thrombocytopenia, leukemia. EKG interpreted by me (3pts min.). @ -None X-rays interpreted by me (1pt min.). @ -Xray performed revealed no acute cardiopulmonary processes, as determined by radiology. CT interpreted by me (1pt min.). @ -None done U/S interpreted by me (1pt. min.). @ -None done What testing was considered but not performed or refused? (CT, X-rays, U/S, labs)? Why? @ -None. What meds were considered but not given or refused? Why? @ -None Did you discuss the management of the patient with other professionals (professionals i.e. , PA, CHIEF CUSTOMER OFFICER, lab, RT, psych nurse, older adult social work specialist, data typist, teacher, commissioned security officer, director case management)? Give summary @ -Discussed with attending physician. Offered patient option to stay over night due to recent diagnosis and thrombocytopenia, patient denies. Was smoking cessation discussed for >3mins.? @ -No Was critical care preformed (if so, how long)? @ -No Were there social determinants of health that impacted care today? How? (Homele ssness, low income, unemployed, alcoholism, drug addiction, transportation, low edu. Level, literacy, decrease access to med. care, custodial, rehab)? @ -No Was there de-escalation of care discussed even if they declined (Discuss DNR or withdrawal of care, Hospice)? DNR status @ -No What co-morbidities impacted this encounter? (DM, HTN, Smoking, COPD, CAD, Cancer, CVA, ARF, Chemo, Hep., AIDS, mental health diagnosis, sleep apnea, morbid obesity)? @ -AML on daily PO chemotherapy. Was patient admitted / discharged? Hospital course, mention meds given and route, prescriptions, significant lab abnormalities, going to OR and other pertinent info. @ -63-year-old male presented to ED with complaints of intermittent epistaxis over the last 4 days. Patient receives blood draws 3 times a week through [facility]. Patient's blood draw this morning revealed low platelet count of 13.1. Patient was instructed to come to ED for platelet transfusion. Patient's vitals revealed an elevated temperature of 101.1 and was given tylenol. Labs and imaging ordered to determine further source of infection due to patient being immunocompromised. Chest x-ray unremarkable. Patient with critically low platelets at 15. Patient has tested positive for influenza A and is interested in starting tamiflu. Per blood bank, there is only 1 compatible unit of platelets to be transfused today with another available unit at 7pm this evening. discussed with patient the option of staying overnight, patient refuses. Patient states they will return tomorrow for second transfusion. Undiagnosed new problem with uncertain prognosis? @ -No Drug Therapy requiring intensive monitoring for toxicity (Heparin, Nitro, Insulin, Cardizem)? @ -No Were any procedures done? @ -No Diagnosis/symptom? @ -Epistaxis secondary to thrombocytopenia. Fever secondary to influenza A diagnosis. Acute, or Chronic, or Acute on Chronic? @ -Acute influenza and thrombocytopenia. Uncomplicated (without systemic symptoms) or Complicated (systemic symptoms)? @ -Uncomplicated Side effects of treatment? @ -No Exacerbation, Progression, or Severe Exacerbation? @ -No Poses a threat to life or bodily function? How? (Chest pain, [place], [place], pneumonia, PE, COPD, DKA, ARF, appy, cholecystitis, CVA, Diverticulitis, Homicidal, Suicidal, threat to staff... and all critical care pts) @ -No (Maliha Garcia) Critical care time of 40 minutes for blood products transfusion (Flor Partida) - Lab Data Lab Results 01/07/24 01/07/24 01/07/24 Range/Units 10:24 11:57 11:57 WBC 23.1 H (3.8-10.6) k/uL RBC 2.80 L (4.30-5.90) m/uL Hgb 8.4 L D (13.0-17.5) gm/dL Hct 24.7 L (39.0-53.0) % MCV 88.3 (80.0-100.0) fL MCH 29.9 (25.0-35.0) pg MCHC 33.9 (31.0-37.0) g/dL RDW 20.9 H (11.5-15.5) % Plt Count 15 L* (150-450) k/uL MPV 21.8 Neutrophils % (Manual) 86 % Band Neuts % (Manual) 1 % Lymphocytes % (Manual) 2 % Monocytes % (Manual) 6 % Eosinophils % (Manual) 2 % Blast Cells % 5 H* % Neutrophils # (Manual) 20.00 H (1.3-7.7) k/uL Lymphocytes # (Manual) 0.46 L (1.0-4.8) k/uL Monocytes # (Manual) 1.39 H (0-1.0) k/uL Eosinophils # (Manual) 0.46 (0-0.7) k/uL Blast Cells # (Man) 1.16 H (0) k/uL Nucleated RBCs 1 H (0-0) /100 WBC Manual Slide Review Performed Polychromasia Present Poikilocytosis Slight Anisocytosis Moderate Sodium 134 L (137-145) mmol/L Potassium 4.1 (3.5-5.1) mmol/L Chloride 103 (98-107) mmol/L Carbon Dioxide 25 (22-30) mmol/L Anion Gap 6 mmol/L BUN 17 (9-20) mg/dL Creatinine 1.05 (0.66-1.25) mg/dL Est GFR (CKD-EPI)AfAm 86 (>60 ml/min/1.73 sqM) Est GFR (CKD-EPI)NonAf 75 (>60 ml/min/1.73 sqM) Glucose 115 H (74-99) mg/dL Plasma Lactic Acid Lincoln (0.7-2.0) mmol/L Calcium 8.3 L (8.4-10.2) mg/dL Total Bilirubin 0.7 (0.2-1.3) mg/dL AST 35 (17-59) U/L ALT 26 (4-49) U/L Alkaline Phosphatase 144 H (38-126) U/L Total Protein 5.8 L (6.3-8.2) g/dL Albumin 3.6 (3.5-5.0) g/dL Influenza Type A (PCR) (Not Detectd) Influenza Type B (PCR) (Not Detectd) RSV (PCR) (Not Detectd) SARS-CoV-2 (PCR) (Not Detectd) Transfuse Platelets 01/07/24 01/07/24 01/07/24 Range/Units 11:57 11:57 WBC (3.8-10.6) k/uL RBC (4.30-5.90) m/uL Hgb (13.0-17.5) gm/dL Hct (39.0-53.0) % MCV (80.0-100.0) fL MCH (25.0-35.0) pg MCHC (31.0-37.0) g/dL RDW (11.5-15.5) % Plt Count (150-450) k/uL MPV Neutrophils % (Manual) % Band Neuts % (Manual) % Lymphocytes % (Manual) % Monocytes % (Manual) % Eosinophils % (Manual) % Blast Cells % % Neutrophils # (Manual) (1.3-7.7) k/uL Lymphocytes # (Manual) (1.0-4.8) k/uL Monocytes # (Manual) (0-1.0) k/uL Eosinophils # (Manual) (0-0.7) k/uL Blast Cells # (Man) (0) k/uL Nucleated RBCs (0-0) /100 WBC Manual Slide Review Polychromasia Poikilocytosis Anisocytosis Sodium (137-145) mmol/L Potassium (3.5-5.1) mmol/L Chloride (98-107) mmol/L Carbon Dioxide (22-30) mmol/L Anion Gap mmol/L BUN (9-20) mg/dL Creatinine (0.66-1.25) mg/dL Est GFR (CKD-EPI)AfAm (>60 ml/min/1.73 sqM) Est GFR (CKD-EPI)NonAf (>60 ml/min/1.73 sqM) Glucose (74-99) mg/dL Plasma Lactic Acid [place] 1.6 (0.7-2.0) mmol/L Calcium (8.4-10.2) mg/dL Total Bilirubin (0.2-1.3) mg/dL AST (17-59) U/L ALT (4-49) U/L Alkaline Phosphatase (38-126) U/L Total Protein (6.3-8.2) g/dL Albumin (3.5-5.0) g/dL Influenza Type A (PCR) Detected A (Not Detectd) Influenza Type B (PCR) Not Detected (Not Detectd) RSV (PCR) Not Detected (Not Detectd) SARS-CoV-2 (PCR) Not Detected (Not Detectd) Transfuse Platelets Disposition Is patient prescribed a controlled substance at d/c from ED?: No Time of Disposition: 15:00 <Maliha Garcia - Last Filed: 01/09/24 06:33> <Flor Partida - Last Filed: 01/09/24 22:40> Clinical Impression: Thrombocytopenia, Influenza A Disposition: HOME SELF-CARE Condition: Good Additional Instructions: Please return to the Emergency Department if symptoms worsen or any other concerns. Prescriptions: Oseltamivir [Tamiflu] 75 mg PO Q12HR #10 cap Referrals: None,Stated [Primary Care Provider] - 1-2 days
[2024-01-07] MEDS: ACETAMINOPHEN TAB 500 MG TAB PO STA ×2 (11:30→12:48)
[2024-01-07 12:26] LABS: Anisocytosis Moderate; HCT 24.7 % (39.0-53.0); MCH 29.9 pg (25.0-35.0); MCHC 33.9 g/dL (31.0-37.0); MCV 88.3 fL (80.0-100.0); Mean Platelet Volume 21.8; Poikilocytosis Slight; RDW 20.9 % (11.5-15.5)
--- NOTE | 2024-01-07 12:28 | XR ---
EXAMINATION TYPE: XR chest 2V DATE OF EXAM: 01/07/2024 12:13 PM CLINICAL INDICATION:Male, 63 years old with history of fever; COMPARISON: Chest radiographs from 12/27/2022 TECHNIQUE: XR chest 2V Frontal and lateral views of the chest. FINDINGS: Lungs/Pleura: There is no evidence of pleural effusion, focal consolidation, or pneumothorax. Pulmonary vascularity: Unremarkable. Heart/mediastinum: Cardiomediastinal silhouette is unremarkable. Musculoskeletal: No acute osseous pathology. There is fixation hardware in the lower cervical spine. Other findings: None Lines/Tubes: [id number] projecting over the left hemithorax with distal tip at the cavoatrial junction. IMPRESSION: No acute cardiopulmonary disease/process.
[2024-01-07 12:31] LABS: HGB 8.4 gm/dL (13.0-17.5)
[2024-01-07 12:33] LABS: ALT 26 U/L (4-49); AST 35 U/L (17-59); African American GFR (CKD) 86 (>60 ml/min/1.73 sqM); Albumin 3.6 g/dL (3.5-5.0); Alkaline Phosphatase 144 U/L (38-126); Anion Gap 6 mmol/L; Blood Urea Nitrogen 17 mg/dL (9-20); Calcium 8.3 mg/dL (8.4-10.2); Carbon Dioxide 25 mmol/L (22-30); Chloride 103 mmol/L (98-107); Glucose 115 mg/dL (74-99); Non-African American GFR(CKD) 75 (>60 ml/min/1.73 sqM); Potassium 4.1 mmol/L (3.5-5.1); Sodium 134 mmol/L (137-145); Total Bilirubin 0.7 mg/dL (0.2-1.3); Total Protein 5.8 g/dL (6.3-8.2)
[2024-01-07 13:45] LABS: Band Neutrophils % 1 %; Neutrophils % (M) 86 %
[2024-01-07 13:46] VITALS: PULSE 95
[2024-01-07 13:48] LABS: Blast Cells # (M) 1.16 k/uL (0); Eosinophils # (M) 0.46 k/uL (0-0.7); Lymphocytes # (M) 0.46 k/uL (1.0-4.8); Monocytes # (M) 1.39 k/uL (0-1.0); Nucleated Red Blood Cells 1 /100 WBC (0-0); Total Cells Counted 200; WBC 23.1 k/uL (3.8-10.6)
[2024-01-07 13:49] LABS: Platelet Count 15 k/uL (150-450)
[2024-01-07 13:50] LABS: Polychromasia Present
[2024-01-07 14:18] VITALS: BP 120/66
[2024-01-07 14:19] VITALS: TEMP 99
== END 2024-01-07 14:30 | disposition home or self-care (01) ==
LOC: EC 09:09
DX: J10.1 Influenza due to other identified influenza virus with other respiratory manifestations (principal); D69.6 Thrombocytopenia, unspecified; R04.0 Epistaxis; R00.0 Tachycardia, unspecified; Z20.822 Contact with and (suspected) exposure to COVID-19; Z88.1 Allergy status to other antibiotic agents; Z88.5 Allergy status to narcotic agent; Z88.8 Allergy status to other drugs, medicaments and biological substances
CPT/HCPCS: 36415; 80053; 83605; 85025; 87040; 87636; 71046; 99284; 96374; 36430; P9073; J1642